=== PATIENT | male | born 1950 | race Caucasian/White ===

== ENCOUNTER 2021-06-13 08:02 | Outpatient (CLI) | payer MEDICARE, SELFPAY ==
--- NOTE | ~2021-06-13 | US_ITS ---
EXAMINATION: US arterial ankle brachial ind DATE: 06/13/2021 08:43 INDICATION: Other disorders circulatory system TECHNIQUE: Segmental pressures and plethysmographic and Doppler waveforms of the brachial and lower e xtremity arteries were obtained. COMPARISON: None. FINDINGS: Right and left brachial artery pressures of 141 mm Hg and 149 mm Hg, respectively, are concordant (no rmal difference <= 30 mmHg). The right ankle-brachial index (YASSINE) is 1.21 (normal >= 0.9-1.0). The right great toe-brachial index (TBI) is 0.88 (normal >= 0.65). Arterial Doppler waveforms are biphasic with brisk systolic upstrokes at both the right posterior tibial and dorsalis pedis arteries. The left YASSINE is 1.17. The left TBI is 0.91. Arterial Doppler waveforms are biphasic with brisk systol ic upstrokes at both the left posterior tibial and dorsalis pedis arteries. IMPRESSION: 1. No significant arterial occlusive disease with normal bilateral ABIs and TBIs Reviewed, dictated and finalized at location B. H MOLDER IMPRESSION: 1. No significant arterial occlusive disease with normal bilateral ABIs and TBI s
== END 2021-06-13 08:03 | disposition home or self-care (01) ==
LOC: ANHIMG 08:06
PROVIDERS: PCP Family Medicine; Visit Provider Family Medicine
DX: I73.9 Peripheral vascular disease, unspecified (principal); I99.8 Other disorder of circulatory system
CPT/HCPCS: 93922

== ENCOUNTER 2021-11-05 07:20 | Outpatient (CLI) | payer MEDICARE, SELFPAY ==
--- NOTE | ~2021-11-05 | CT_ITS ---
EXAMINATION: CTA chest PE protocol DATE: 11/05/2021 08:04 INDICATION: Shortness of breath. Chest pain. TECHNIQUE: Computed tomography angiography (CTA) of the chest was performed with 100 mL Omnipaque-350 intravenous contrast timed to evaluate the pulmonary arteries. Coronal maximum intensity projection 3D-reconstructions were created by the technologist. Automated exposure control and iterative reconst ruction technique were employed. The dose-length product was 304.02 mGy-cm. COMPARISON: None. FINDINGS: The lungs demonstrate mild atelectasis. There are peripheral groundglass opacities and nodu les in the lower lobes. There are a few scattered nodules in the lungs measuring up to 5 mm. There is mild scarring in right upper lobe. No pleural effusion. The heart size is normal. There are coronary artery calcifications. There are changes of coronary artery bypass grafting. Calcified right hilar a nd mediastinal lymph nodes are consistent with old granulomatous disease. There is mild right hilar l ymphadenopathy. There is no pulmonary embolus. Calcifications in the liver and spleen are consistent with old granulomatous disease. There are bridging endplate osteophytes at multiple levels in the spi ne, consistent with diffuse idiopathic skeletal hyperostosis (DISH). There is mild chronic anterior w edging of multiple vertebral bodies. IMPRESSION: 1. No pulmonary embolus. 2. Mild pneumonia predominantly involving the lower lobes. 3. Mild right hilar lymphadenopathy, likely reactive. Reviewed, dictated and finalized at location D.
== END 2021-11-05 07:21 | disposition home or self-care (01) ==
PROVIDERS: PCP Family Medicine; Visit Provider Family Medicine
DX: R79.1 Abnormal coagulation profile (principal); J18.9 Pneumonia, unspecified organism; R79.89 Other specified abnormal findings of blood chemistry; I25.10 Atherosclerotic heart disease of native coronary artery without angina pectoris; R59.0 Localized enlarged lymph nodes; M48.50XA Collapsed vertebra, not elsewhere classified, site unspecified, initial encounter for fracture
CPT/HCPCS: 71275; Q9967

== ENCOUNTER 2022-08-16 14:00 | Emergency (ER) | payer MEDICARE, SELFPAY ==
--- NOTE | ~2022-08-16 | CT_ITS ---
EXAMINATION: CT pelvis wo con DATE: 08/16/2022 16:05 INDICATION: Fall. TECHNIQUE: Computed tomography (CT) of the pelvis was performed without intravenous contrast. Automat ed exposure control and iterative reconstruction technique were employed. The dose-length product was 493.08 mGy-cm. COMPARISON: X-ray left hip with AP pelvis, same date. FINDINGS: Atherosclerotic calcifications. No aneurysm. Bilateral perinephric stranding. Diverticulosi s without diverticulitis. Bladder wall thickening, likely secondary to outlet compromise from prostat omegaly. Uncomplicated appearing bilateral small fat-containing inguinal hernias. Degenerative change s in the spine and bilateral hips. No fracture or dislocation. 6.9 x 6.9 x 5.8 cm soft tissue hematom a within the medial aspect of the left gluteus jennifer muscle. IMPRESSION: 1. No acute osseous finding in the pelvis. 2. 6.9 cm left posterior medial gluteal hematoma. Reviewed, dictated and finalized at location K. OENGRAVER APPRENTICE
--- NOTE | ~2022-08-16 | XR_ITS ---
EXAM: XR hip LT 2V w AP pelvis DATE: 08/16/2022 14:54 HISTORY: fall, left hip pain, buttock lump, unable to sit or lay down . COMPARISON: None available. FINDINGS: Normal mineralization. No fracture or dislocation. No lytic or blastic lesion. Mild lumbar degenerative disc disease. Mild bilateral hip osteoarthritis and scattered pelvic enthesopathy. No e rosion or periosteal change. Scattered vascular calcifications. IMPRESSION: No acute osseous finding in the pelvis or left hip. Reviewed, dictated and finalized at location K. CAL SCIENTIST
[2022-08-16 14:03] VITALS: BP 128/64; PULSE 81; RESP 20; TEMP 36.1; O2SAT 100
[2022-08-16 14:18] VITALS: TEMP 36.6
[2022-08-16 17:07] LABS: Basophils Percent Auto 0.2 % (0.2-1.2); Eosinophils Percent Auto 0.2 % (0-4.4); Hematocrit 37.5 % (42.0-52.0); Hemoglobin 11.9 g/dL (14.0-18.0); Immature Granulocyte Absolute 0.04 K/mm3 (0.00-0.031); Immature Granulocyte Percent A 0.4 % (0-0.5); Lymphocytes Absolute Auto 1.52 K/mm3 (0.9-3.2); Lymphocytes Percent Auto 14.8 % (18.3-44.2); Mean Corpuscular HGB Conc 31.7 g/dl (32-36); Mean Corpuscular Hemoglobin 27.3 pg (26-34); Mean Platelet Volume 11.5 fl (7.4-10.4); Monocytes Absolute Auto 0.9 K/mm3 (0.1-0.6); Monocytes Percent Auto 8.3 % (2.6-8.5); Neutrophils Absolute Auto 7.8 K/mm3 (1.3-6.7); Neutrophils Percent Auto 76.1 % (45.5-73.1); Platelet Count Result 210 k/mm3 (150-375); Red Blood Count 4.36 M/mm3 (4.6-6.20); Red Cell Distribution Width 15.4 % (11.5-14.5); White Blood Count 10.3 K/mm3 (4.5-10.0)
--- NOTE | 2022-08-16 18:27 | ED.FALL ---
HPI - Fall General Chief Complaint: Fall Stated Complaint: fall with left hip pain Time Seen by Provider: 08/16/22 14:19 Source: RN notes reviewed History of Present Illness HPI Narrative: Patient presents for left hip and buttocks pain. Patient states that approximately 1030 this morning he was taking off his pants when he fell and landed on his left buttocks. He states since that time he has had some pain in the buttocks with some swelling area right states she had marked area noted the swelling been getting bigger become concerned and sent him to the ER for further evaluation. Patient denies striking his head or loss of consciousness he denies any numbness or tingling in the extremities denies any abdominal pain states he is not on any blood thinners Related Data Allergies Allergy/AdvReac Type Severity Reaction Status Date / Time No Known Allergies Allergy Verified 08/16/22 14:01 Review of Systems Review of Systems: Gen.: Denies fevers or chills ENT: Denies congestion Respiratory: Denies shortness of breath or cough CV: Denies chest pain or palpitations GI: Denies abdominal pain nausea, emesis denies incontinence Musculoskeletal: See HPI Neuro: Denies numbness, tingling, weakness or focal weakness Skin: Denies rash Except as documented, all other systems reviewed and negative [facility] Past Medical History Medical History (Updated 08/16/22 @ 18:35 by Philip Ocampo DO) Hypertension Social History Social History (Updated 08/16/22 @ 18:29 by Philip Ocampo DO) Smoking status: Never smoker Exam Narrative: APPEARANCE: No acute distress, nontoxic, resting in bed EYES: EOMI HEENT: Normocephalic, atraumatic, OMM RESPIRATORY: No respiratory distress Clear to auscultation bilaterally with no rhonchi wheezing or rales. CARDIOVASCULAR: Regular rate and rhythm without murmurs rubs or gallops. ABDOMINAL: Soft, nontender, nondistended, no rebound or guarding Back: No midline thoracic or lumbar tenderness to palpation MUSCULOSKELETAl: Moves all extremities. No clubbing, cyanosis or edema. The left buttocks has an area of subcutaneous swelling and firmness there is no overlying erythema or open wound there is no overlying ecchymosis seen at this time there is tenderness palpation in this region there is no tenderness over the lateral or anterior hip no tenderness of the left knee or ankle left lower extremity neurovascular intact able to stand on the left leg with no pain NEURO: Awake and alert. Following commands, speech normal, no focal deficits SKIN:: Warm, dry. No rashes lesions or abrasions PSYCHIATRIC: Normal affect/mood, Course Course Emergency Course: : Discussed with Dr. Smith presentation work-up. Discussed patient's hemoglobin and current hematoma the patient is hemodynamically stable feels patient may be discharged follow-up as an outpatient Discussed with patient results of workup and diagnosis. Discussed need for follow-up with primary care, proper use of medication, and reasons to return to the emergency department. Patient understands and agrees to current treatment plan Vital Signs Vital signs: Vital Signs Temperature 96.9 F L 08/16/22 14:03 Pulse Rate 81 08/16/22 14:03 Respiratory Rate 20 08/16/22 14:03 Blood Pressure 128/64 08/16/22 14:03 Pulse Oximetry 100 08/16/22 14:03 Oxygen Delivery Room Air 08/16/22 14:03 Temperature 97.9 F 08/16/22 14:18 Pulse Rate 81 08/16/22 14:03 Respiratory Rate 20 08/16/22 14:03 Blood Pressure 128/64 08/16/22 14:03 Pulse Oximetry 100 08/16/22 14:03 Oxygen Delivery Room Air 08/16/22 14:03 MDM - Fall MDM Narrative Medical decision making narrative: Patient presents with a fall with left buttocks hematoma. CT scan and x-ray shows no signs of fracture. Patient's hematoma was monitored throughout stay in ED and did have some mild increase in size but no large exaggeration of size the patient is feeling better is able t
[2022-08-16 18:47] VITALS: BP 138/75; PULSE 84; RESP 17; TEMP 36.6; O2SAT 97
== END 2022-08-16 18:48 | disposition home or self-care (01) ==
PROVIDERS: Emergency Provider Emergency Medicine; PCP Family Medicine
DX: S30.0XXA Contusion of lower back and pelvis, initial encounter (principal); I10 Essential (primary) hypertension; W18.39XA Other fall on same level, initial encounter
CPT/HCPCS: 36415; 72192; 73502; 85025; 99284

== ENCOUNTER → 2022-09-02 15:13 | Outpatient (CLI) | payer MEDICARE, SELFPAY ==
--- NOTE | ~2022-09-02 | MR_ITS ---
EXAMINATION: MR pelvis wo con DATE: 09/02/2022 16:37 INDICATION: Arthralgia of left side of pelvis. TECHNIQUE: Magnetic resonance imaging (MRI) of the pelvis was performed without intravenous contrast. COMPARISON: CT pelvis 08/16/2022 FINDINGS: Bone alignment is normal. No fracture. There is moderate osteoarthritis of the hips. There is a small right hip joint effusion. There is mild osteoarthritis of the sacroiliac joints. There is mild lumba r spondylosis. There is diverticulosis of the colon without evidence of diverticulitis. The prostate is moderately enlarged. There is a 7.0 x 5.3 cm hematoma in the left gluteus maximum muscle with incr eased T2-weighted signal intensity in the adjacent muscle fibers. The hamstring origins are normal. T he gluteus minimus and gluteus medius tendons are normal. There is mild bilateral trochanteric bursit is. IMPRESSION: 1. Partial tear of left gluteus jennifer muscle with hematoma (grade 2 strain). 2. Moderate osteoarthritis of the hips. Reviewed, dictated and finalized at location A. CEMENT AND PAINT MAKER
== END ==
PROVIDERS: PCP Family Medicine; Visit Provider Family Medicine
DX: M25.552 Pain in left hip (principal); M16.0 Bilateral primary osteoarthritis of hip; S30.0XXA Contusion of lower back and pelvis, initial encounter; T14.90XA Injury, unspecified, initial encounter
CPT/HCPCS: 72195

== ENCOUNTER 2024-02-03 13:12 | Outpatient (CLI) | payer MEDICARE, SELFPAY ==
--- NOTE | ~2024-02-03 | MR_ITS ---
EXAMINATION: MR pelvis wo con DATE: 02/03/2024 14:13 INDICATION: Sacroiliitis. Lumbar spine stenosis. Left hip pain. Low back pain. TECHNIQUE: Magnetic resonance imaging (MRI) of the pelvis was performed without intravenous contrast. COMPARISON: Pelvis MRI 09/02/2022, CT pelvis 08/16/2022 FINDINGS: Bone alignment is normal. No fracture. There is moderate osteoarthritis of the hips. There is mild os teoarthritis of the sacroiliac joints. There is mild lumbar spondylosis. The prostate is mildly enlar ged. The hamstring origins are normal. The iliopsoas tendons are normal. There is mild bilateral glut eus minimus tendinopathy. The gluteus medius tendons are normal. There is mild bilateral trochanteric bursitis. IMPRESSION: 1. Moderate osteoarthritis of the hips. 2. Mild osteoarthritis of the sacroiliac joints. No evidence of inflammatory arthropathy. Reviewed, dictated and finalized at location A. IMPRESSION: 1. Moderate osteoarthritis of the hips. 2. Mild osteoarthritis of the sacroiliac joints. No evidence of inflammatory ar thropathy.
--- NOTE | ~2024-02-03 | MR_ITS ---
EXAMINATION: MR lumbar spine wo con DATE: 02/03/2024 14:01 INDICATION: Low back pain. Left hip pain. Lumbar spine stenosis. TECHNIQUE: Magnetic resonance imaging (MRI) of the lumbar spine was performed without intravenous con trast. Sequences included sagittal T2-weighted FSE, sagittal T2-weighted FS FSE, sagittal T1-weighted FSE, and axial T2-weighted FSE. COMPARISON: None FINDINGS: Bone alignment is normal. Vertebral body heights are normal. There is mildly decreased disc height at L4-L5 and moderately decreased disc height at L5-S1. The distal spinal cord signal intensi ty is normal. The conus medullaris is at L2. There is clumping and peripheral displacement of the cau da equina from L4 to S1, consistent with arachnoiditis. The following disc levels are specifically di scussed: L1-L2: The disc does not extend beyond the endplate margin. There is mild bilateral facet joint osteo arthritis. There is no neural foraminal stenosis. There is no central canal stenosis. L2-L3: The disc does not extend beyond the endplate margin. There is moderate bilateral facet joint o steoarthritis. There is no neural foraminal stenosis. There is no central canal stenosis. L3-L4: The disc is bulging. There is mild bilateral facet joint osteoarthritis. There is mild bilater al neural foraminal stenosis. There is no central canal stenosis. L4-L5: The disc is bulging and has an annular fissure. There is mild right and moderate left facet kimo int osteoarthritis. There is mild bilateral neural foraminal stenosis. There is mild central canal st enosis. L5-S1: The disc is bulging. There is severe bilateral facet joint osteoarthritis. There is mild bilat eral neural foraminal stenosis. There is mild central canal stenosis. IMPRESSION: 1. Moderate lower lumbar spondylosis. 2. Arachnoiditis. Reviewed, dictated and finalized at location A.
== END 2024-02-03 13:13 ==
LOC: MICIMG 13:13
PROVIDERS: PCP Family Medicine; Visit Provider Family Medicine
DX: M46.1 Sacroiliitis, not elsewhere classified (principal); M16.0 Bilateral primary osteoarthritis of hip; M43.06 Spondylolysis, lumbar region; G03.9 Meningitis, unspecified; R21 Rash and other nonspecific skin eruption; M48.061 Spinal stenosis, lumbar region without neurogenic claudication; R26.9 Unspecified abnormalities of gait and mobility; R39.15 Urgency of urination; R15.9 Full incontinence of feces
CPT/HCPCS: 72148; 72195

== ENCOUNTER 2024-05-03 08:45 | Outpatient (CLI) | payer MEDICARE, SELFPAY ==
--- NOTE | ~2024-05-03 | MR_ITS ---
EXAMINATION: MR knee RT wo con DATE: 05/03/2024 09:34 INDICATION: Right knee pain TECHNIQUE: Magnetic resonance imaging (MRI) of the right knee was performed without intravenous contr ast. Sequences included coronal PD-weighted FSE, coronal PD-weighted FS FSE, sagittal T2-weighted FS E, sagittal PD-weighted FS FSE and axial PD weighted fat saturated FSE. COMPARISON: None. FINDINGS: Medial compartment: Medial meniscus is normal. There is deep chondral fissuring involving greater than 50% the cartilage thickness but without degenerative subchondral changes along the anterior to central weightbearing me dial femoral condyle. Additional shallow chondral fissuring involving less than 50% the cartilage thi ckness at the central to anterior aspect of the medial tibial plateau. There are small intraosseous g anglion cysts along the anteromedial and posterior medial aspect of the medial tibial plateau. Lateral compartment: Lateral meniscus is normal. Partial-thickness chondral fissuring along the anterior weightbearing lat eral femoral condyle and at the central aspect of the lateral tibial plateau each with small regions appearing to involve greater than 50% the cartilage thickness but without degenerative subchondral ch anges. There is an additional small intraosseous ganglion cyst at the posterior medial aspect of the lateral tibial plateau. Patellofemoral compartment: Deep chondral ulceration involving greater than 50% the cartilage thickness at the patellar apical ri dge, medial and lateral patellar facets, the latter with small regions of underlying mild subarticula r edema-like signal change. Similar deep chondral ulceration with small focus of mild subarticular ed luis-like signal change at the lateral trochlea, with small central subchondral osteophytes at the tro chlear groove-like change at the inferior aspect of the medial trochlea. Ligaments and tendons: Posterior cruciate ligament is normal. Prominent increased intrasubstance signal in the anterior cruc iate ligament which maintains a normal angle relative to Blumensaat line consistent with mucoid degen eration without definitive tear. The medial collateral ligament and fibular collateral ligament compl ex are normal. Moderate size enthesophyte at the patellar insertion of the normal quadriceps tendon. Patellar tendon is normal. The visualized medial and lateral hamstring tendons as well as the iliotib ial band are normal. Fluid: Very small right knee joint effusion at the suprapatellar pouch. Small ganglion cyst at the and reces s posterior superior to the intercondylar notch. No loose osteochondral bodies identified. Osseous/other: Bone alignment is normal. No fracture or pathologic marrow replacing process. IMPRESSION: 1. Tricompartmental osteoarthritis, moderate severity with extensive high-grade chondromalacia at the patellofemoral compartment and mild with regions of moderate grade chondromalacia at the medial and lateral compartments. 2. Likely mucoid degeneration of the anterior cruciate ligament without definitive tear. Correlate [facility] physical exams to assess for degree of functional integrity. Reviewed, dictated and finalized at location A. IMPRESSION: 1. Tricompartmental osteoarthritis, moderate severity with extensive high-grade chondromalacia at the patellofemoral compartment and mild with regions of mode rate grade chondromalacia at the medial and lateral compartments. 2. Likely mucoid degeneration of the anterior cruciate ligament without definit jennifer tear. Correlate with physical exams to assess for degree of functional inte grity.
== END 2024-05-03 08:46 | disposition home or self-care (01) ==
LOC: GOSHIMG 08:46
PROVIDERS: PCP Family Medicine; Visit Provider Family Medicine
DX: M17.11 Unilateral primary osteoarthritis, right knee (principal); M22.41 Chondromalacia patellae, right knee
CPT/HCPCS: 73721

== ENCOUNTER 2024-06-09 14:09 | Outpatient (CLI) | payer MEDICARE, SELFPAY ==
--- NOTE | ~2024-06-09 | CT_ITS ---
CT of the Abdomen and Pelvis: Indication: Ventral hernia Technique: 2.5 mm axial scans were obtained through the abdomen and pelvis following intravenous adm inistration of 100 cc of Omnipaque 350. Dose reduction technique was used on this scan by utilizing a utomated exposure control and iterative reconstruction technique. The dose-length product (DLP) was 5 64.65 mGy-cm. COMPARISON: 08/16/2022 Findings: Scans through the lung bases are unremarkable. The liver, spleen, gallbladder, adrenals and kidneys are within normal limits. Pancreas is diffusely atrophic with a 14 mm cystic lesion at the pancreatic neck (axial image 55). There are atheroscleroti c calcifications of the aorta. No lymphadenopathy. No bowel obstruction or bowel wall thickening. There is no evidence to suggest acute appendicitis. Images through the pelvis were performed. Urinary bladder unremarkable. Prostate gland markedly enlar ged. No ascites. Impression: No hernia evident. 14 mm cystic lesion of the pancreas. This is most likely a low malignant potential lesion. Consider f ollow-up MR as indicated. Reviewed, dictated and finalized at location . UNICATION CENTER OPERATOR Impression: No hernia evident. 14 mm cystic lesion of the pancreas. This is most likely a low malignant potent ial lesion. Consider follow-up MR as indicated.
[2024-06-09 14:42] LABS: Estimated Glomerular Filt Rate 39
== END 2024-06-09 14:10 | disposition home or self-care (01) ==
PROVIDERS: PCP Family Medicine; Visit Provider Family Medicine
DX: K86.2 Cyst of pancreas (principal); K43.9 Ventral hernia without obstruction or gangrene
CPT/HCPCS: 74177; Q9967

== ENCOUNTER 2024-06-11 08:42 | Outpatient (CLI) | payer MEDICARE, SELFPAY ==
--- NOTE | ~2024-06-11 | MR_ITS ---
EXAMINATION: MR abdomen wo/w con DATE: 06/11/2024 11:03 INDICATION: Pancreatic lesion. TECHNIQUE: Magnetic resonance imaging (MRI) of the abdomen was performed without and with 16 mL Multi Erik intravenous contrast. COMPARISON: CT abdomen and pelvis 06/09/2024, chest CT 11/05/21, CT abdomen 10/01/06 FINDINGS: The liver, gallbladder, spleen, and adrenal glands are normal. There are cysts in the kidneys measuri ng up to 3.2 cm on the right. The pancreas is atrophic. There are approximately 6 cystic lesions in t he pancreas measuring up to 14 mm. The pancreatic duct is normal in caliber. There are no dilated loo ps of bowel. There are no pathologically enlarged lymph nodes. There is no free intraperitoneal fluid . There is a right-sided ventral hernia containing fat. IMPRESSION: 1. Low risk cystic lesions of the pancreas measuring up to 14 mm. The differential diagnosis includes pseudocyst, intraductal papillary mucinous neoplasm (IPMN), mucinous cystic neoplasm (MCN), serous c ystadenoma, and neuroendocrine tumor. Consider abdomen MRI without and with contrast in 2 years. 2. Right-sided ventral hernia containing fat. Reviewed, dictated and finalized at location A. OR ARCHITECT IMPRESSION: 1. Low risk cystic lesions of the pancreas measuring up to 14 mm. The different ial diagnosis includes pseudocyst, intraductal papillary mucinous neoplasm (IPM N), mucinous cystic neoplasm (MCN), serous cystadenoma, and neuroendocrine tumo r. Consider abdomen MRI without and with contrast in 2 years. 2. Right-sided ventral hernia containing fat.
== END 2024-06-11 08:43 | disposition home or self-care (01) ==
PROVIDERS: PCP Family Medicine; Visit Provider Family Medicine
DX: K86.9 Disease of pancreas, unspecified (principal)
CPT/HCPCS: 74183; A9577

== ENCOUNTER 2025-05-06 11:52 | Outpatient (CLI) | payer MEDICARE, SELFPAY ==
--- OUTSIDE RECORDS SUMMARY | 2024-05-19 07:40 | XMS_ITS ---
Author Organization [facility] Address [address] [place] [address] Care Team Providers Care Card Reader Name Role Phone Cynthia Casas Primary Care Provider Unavailyeni Schrader Jr, MD, Zane Unavailable [phone] ALLERGIES No Known Allergies REASON FOR VISIT Bilateral right greater than left knee pain MEDICATIONS Medication SIG (Take, Route, Frequency, Duration) Notes Start Date End Date Status Pantoprazole Sodium 1 tablet / o nce a day; Prescribed By: Cynthia Casas MD Active Tamsulosin HCl 0.4 MG ! capsule /every evening 05/16/2024 Active Atorvastatin Calcium 40 MG 1 tablet / bedtime 05/16/2024 Active Aspirin 1 tablet / bedtime; Prescribed By: Cynthia Casas MD Active Tylenol Extra Strength 500 MG 3 tablets / bedtime 05/16/2024 Activ e Glimepiride 4 MG 1 tablet/ 2 times a day 05/16/2024 Active metFORMIN HCl 500 MG 2 tablets / 2 times a day 05/16/2024 Active Entresto 24-26 MG 1 tablet / 2 times a day 05/16/2024 Active Carvedilol 12.5 MG 1 tablet/ 2 times a day 05/16/2024 Active Jardiance 10 MG 1 tablet / once a day 05/16/2024 Active Melatonin 5 MG 1 tablet / bedtime 05/16/2024 Active Ibuprofen 200 MG 4 tablets / every 8 hours prn 05/16/2024 Active SOCIAL HISTORY Tobacco Use: Social History Observation Description Date Details (start date - stop date) Former Smoker 07/06/1965 - 07/06/1973 Sex Assigned At : Social History Observation Description Sex Assigned At Unknown Tobacco Use: Question Answer Notes Patient is a: former smoker When did you start smoking? 07/06/1965 When did you stop smoking? 07/06/1973 Alcohol screening: Question Answer Notes Did you have a drink containing alcohol in the p ast year? No Points 0 Interpretation Negative PROBLEMS Problem Type ICD Code Onset Dates Problem Status W/U Status Risk SNOMED Code Notes Problem Bilateral primary osteoarthritis of knee (M17.0) Active confirmed 419405958 Problem Chondrocalcinosis of right knee (M11.261) Active confirmed [id number] Problem Chondrocalcinosis of left knee (M11.262) Active confirmed [id number] VITAL SIGNS Height 70 in 05/19/2024 Weight 175 lbs 05/19/2024 BMI 25.11 kg/m2 05/19/2024 Encounters Encounter Location Date Provider Diagnosis [facility] [address] [place] [address] 05/19/2024 Zane Schrader Jr, MD Bilateral primary osteoarthritis of knee M17.0 ; Chondrocalcinosis of right knee M11.261 and Chondrocalcinosis of left knee M11.262 ASSESSMENTS Encounter Date Diagnosis Assessment Notes Treatment Notes Treatment Clinical Notes 05/19/2024 Bilateral primary osteoarthritis of knee (ICD-10 - M17.0) 05/19/2024 Chondrocalcinosis of right knee (ICD-10 - M11.261) 05/19/2024 Chondrocalcinosis of left knee (ICD-10 - M11.262) PLAN OF TREATMENT No Information History and Physical Notes * HPI (History of Present Illness) Category Sub-Category Detail Notes Depression Screening PHQ-2 (2015 Edition) Little interest or pleasure in doing things?: Nearly every day Feeling down, depressed, or hopeless?: S everal days Total Score: 4
--- NOTE | ~2025-05-06 | XR_ITS ---
EXAMINATION: XR knee RT 3V, 05/06/2025 12:15 CDT HISTORY: Right knee pain Unspecified chronicity COMPARISON: No comparisons available. Findings: No acute fracture or malalignment. Severe tricompartmental degenerative changes with chondrocalcinosis and small effusion Soft tissues unremarkable. Impression: No acute fracture or malalignment. Reviewed, dictated and finalized at location P. ARCHITECT Impression: No acute fracture or malalignment.
--- OUTSIDE RECORDS SUMMARY | 2025-05-06 11:56 | XMS_ITS | Clinical Summary ---
Author Organization [facility] Address [address] [place] [address] Care Team Providers Care Ticker Maintainer Name Role Phone Cynthia Casas MD Primary Care Provider Grecia Bal ANP-BC Unavailable [phone] Allergies No known active allergies Medications aspirin (CALI LOW DOSE) 81 MG Tab EC Take 1 tablet by mouth daily. 5 Active finasteride 5 MG tablet finasteride tablet 5 mg; take 1 tablet by mouth every evening; 0; -Sep-2014; Active 5 Active tamsulosin (FLOMAX) 0.4 MG Cap Take 1 tablet by mouth every evening. 5 Active metFORMIN (GLUCOPHAGE XR) 500 MG 24 hr tablet Take 2 tablets by mouth 2 (two) times daily. 6 Active ibuprofen 800 MG tablet Take 1 tablet by mouth every 8 (eight) hours as needed. 5 Active Magnesium 500 MG Cap Take 1 tablet by mouth 2 (two) times daily. 6 Active pantoprazole (PROTONIX) 40 MG tablet Take 1 tablet by mouth daily. 5 Active Acetaminophen (TYLENOL EXTRA STRENGTH OR) Take 1-2 tablets by mouth 3 (three) times daily as needed. 5 Active Cholecalciferol (VITAMIN D3) 2000 UNITS Cap Take 1 capsule by mouth daily. 5 Active ALPRAZolam (XANAX) 0.25 MG tablet Take 1 tablet by mouth nightly as needed. 6 Active atorvastatin 40 MG tablet Take 40 mg by mouth daily. Active carvedilol 12.5 MG tablet Take 12.5 mg by mouth 2 (two) times daily with meals. Active hydrocodone-jann taminophen 7.5-325 MG tablet Take 1 tablet by mouth every 6 (six) hours as needed for Pain. Active losartan 25 MG tablet Take 12.5 mg by mouth daily. Active glimepiride 4 MG tablet Take 4 mg by mouth 2 (two) times daily. Active cyclobenzaprine 10 MG tablet Take 10 mg by mouth daily as needed for Muscle Spasms. Active zolpidem 10 MG tablet Take 10 mg by mouth nightly as needed for Sleep. Active duloxetine 30 MG capsule Take 30 mg by mouth daily. Active metroNIDAZOLE (FLAGYL) 500 MG tablet Take 500 mg by mouth 2 (two) times daily. 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[place]ving [place] coronary artery of [place] heart without angina pectoris 01/14/2016 SVT (supraventricular tachycardia) 01/14/2016 Mixed hyperlipidemia 01/14/2016 Essential hypertension 01/14/2016 Type 2 diabetes mellitus without complication Family History Medical History Relation Comments NE Brother NE Father Relation Status Comments Brother History: NE age 67 Father (Age 62) Mother (Age 77) bone cancer Social History Tobacco Use Types Packs/Day Years Used Date Smoking Tobacco: Former Cigarettes Q uit: 1974 Smokeless Tobacco: Never Alcohol Use Standard Drinks/Week Comments No 0 (1 standard drink = 0.6 oz pur e alcohol) Sex and Gender Information Value Date Recorded Sex Assigned at Male 08/22/2024 3:31 PM BIOLOGY TEACHER Legal Sex Male 11:08 PM CDT Gender Identity Not on file Sexual Orientation Not on file Occupation Industry Job Start Date Job End Date 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 file Not on file Not on file Last Filed Vital Signs Vital Sign Reading Time Taken Comments Blood Pressure 138/80 09/04/2017 10:59 AM BIOLOGY TEACHER Pulse 88 09/04/2017 10:59 AM BIOLOGY TEACHER Temperature - - Respiratory Rate 16 09/04/2017 10:59 AM BIOLOGY TEACHER Oxygen Saturation - - Inhaled Oxygen Concentration - - Weight 85.3 kg (188 lb) 09/04/2017 10:59 AM BIOLOGY TEACHER Height 177.8 cm (5' 10) 09/04/2017 10:59 AM BIOLOGY TEACHER Body Mass Index 26.98 09/04/2017 10:59 AM BIOLOGY TEACHER Plan of Treatment Health Maintenance Due Date Last Done Comments ASCVD Statin 1950 Kidney Health Evaluation 1950 Diabetes: Retinopathy Eye Exam 01/26/1966 Hepatitis C 01/26/1966 DTaP, Tdap and Td Vaccines (1 - Tdap) 02/21/2006 02/20/2006 Annual Medicare Wellness Visit 01/26/2013 Zoster Vaccines (2 of 3) 11/17/2013 09/22/2013 [facility] LDL 07/23/2016 07/23/2015, 0 02/2015, 05/03/2014, Additional history exists Lipid Panel 07/23/2016 07/23/2015, 0 02/2015, 05/03/2014, Additional history exists Pneumococcal Vaccine: 50+ Years (2 of 2 - PPSV23, PCV20, or PCV21) 02/26/2017 01/01/2017 Hemoglobin A1C 02/18/2018 08/21/2017, 07/06, 11/10/2014, Additional history exists RSV Immunization or 60+ Years (1 - 1-dose 75+ series) 01/26/2023 COVID-19 Vaccine ( season) 2025 10/16/2021, 05/10/2021, 09/01/2020, Additional history exists Influenza Adult (#1) 2025 05/17/2021, 05/04/2019, 04/26/2018, Additional history exists Hepatitis A Vaccines Aged Out No long er eligible based on patient's age to complete this topic Meningococcal B Vaccine Aged Out No l onger eligible based on patient's age to complete this topic Meningococcal Vaccine Aged Out No elvia fadia eligible based on patient's age to complete this topic RSV Immunizations Under 20 Months Aged Out No longer eligible based on patient's age to complete this topic Procedures Procedure Name Priority Date/Time Associated Diagnosis Comments HEMOGLOBIN, GLYCOSYLATED Routine 08/21/2017 10:19 PM BIOLOGY TEACHER LIPID PANEL Routine 07/23/2015 11:02 AM BIOLOGY TEACHER from Last 3 Months or Most Recently Relevant to Health Maintenance Results * (ABNORMAL) HEMOGLOBIN, GLYCOSYLATED (08/21/2017 10:19 PM BIOLOGY TEACHER) HGB A1C 7.4(H) 4.5 - 6.0 % 08/22/2017 12:31 AM BIOLOGY TEACHER [facility] ESTIMATED AVG GLUCOSE 166 MG/DL 08/22/2017 12:31 AM BIOLOGY TEACHER [facility] 08/21/2017 10:1 9 PM BIOLOGY TEACHER 08/21/2017 11:20 PM BIOLOGY TEACHER Generic Conversion Md [facility] Final R esult [facility] [address] [place] [address], [id number] * (ABNORMAL) LIPID PANEL (07/23/2015 11:02 AM BIOLOGY TEACHER) CHOLESTEROL 99(L) 120 - 200 mg/dL [facility] TO EPIC CONVERSION TRIGLYCERIDES 142 20 - 200 mg/dL [facility] TO [facility]IC CONVERSION HDL 23 0 - 55 mg/dL [facility] TO [facility]IC CONVERSION LDL (CALCULATED) 48 10 - 130 mg/dL [facility] TO EPIC CONVERSION RISK 4 [facility] T O EPIC CONVERSION 07/23/2015 11:0 2 AM BIOLOGY TEACHER 07/23/2015 11:02 AM BIOLOGY TEACHER Narrative [facility] TO EPIC CONVERSION - 07/23/2015 12:00 PM BIOLOGY TEACHER This lab was migrated from [facility] and may be missing annotations or result text, please check the Media tab for the most complete results. Cynthia Casas MD LABORATORY Final Result [facility] TO EPIC CONVERSION from Last 3 Months or Most Recently Relevant to Health Maintenance Insurance [facility] MEDICARE [facility] MEDICARE [facility] Care Teams Ticker Maintainer Relationship Specialty Start Date End Date Cynthia Casas MD [address] [place] [address] PCP - General FAMILY PRACTICE 01/09/16 Grecia Bal, ANP- [address] [facility] [address] [place] [id number] CARDIOVASCULAR DISEASE 09/04/17
--- OUTSIDE RECORDS SUMMARY | 2025-05-06 11:56 | XMS_ITS | Patient Health Record ---
Author Organization [facility] dicine Address [address] [place] [address] Care Team Providers Care Analytics Senior Manager Name Role Phone Dr. Cynthia Casas Primary Care Provider [phone] Lora Meyer Unavailable [phone] Migration, Provider Unavailable Unavailable Allergies No Known Allergies Results Component Value Reference Range Flag Notes Urine Culture Reviewed date:09/23/2024 12:27:49 PM Interpretation: Performing Lab: Notes/Report: Test Performed by: [place] [address] Yeast Cake Cutter: DO Neeraj Lr Urine See Below Final No growth at 2 days. Urinalysis with Microscopic Reviewed date:09/23/2024 12:27:49 PM Interpretation: Performing Lab: Notes/Report: Test Performed by: [place] [address] Yeast Cake Cutter: Philip Manley DO UA All Small Particles 1177 UA Color Light Yellow UA Appear Clear Clear UA pH 6.0 5.0-8.0 UA Spec Grav 1.017 1.005-1.034 UA Glucose Normal Normal UA Ketones Negative Negative UA Blood Negative Negative UA Protein Trace Negative A UA Urobilinogen Normal Normal UA Bili Negative Negative UA Nitrite Negative Negative UA Leuk Est Negative Negative UA WBC 1 <=5 /HPF UA RBC 1 0-3 /HPF UA Bacteria Negative Negative /HPF UA Mucous Negative Negative /LPF CBC w/ Diff Reviewed date:06/06/2024 12:00:00 AM Interpretation: Performing Lab: Notes/Report: Baso Absolute 0.1 x10*3/mcL Basophil Auto 0.9 % Eos Absolute 0.8 x10*3/mcL Eosinophil Auto 14.4 % Hct 47.6 % Hgb 15.9 g/dL Lymph Absolute 1.6 x10*3/mcL Lymph Auto 28.2 % MCH 30.7 pg MCHC 33.3 g/dL MCV 92.0 fL Yuba Absolute 0.4 x10*3/mcL [place] Auto 8.0 % MPV 10.3 fL Neutro Absolute 2.7 x10*3/mcL Neutro Auto 48.5 % Platelets 211 K/mcL RBC 5.17 x10*6/mcL RDW 16.3 % WBC 5.6 K/mcL Comprehensive Metabolic Pane l Reviewed date:06/06/2024 12:00:00 AM Interpretation: Performing Lab: Notes/Report: Albumin Lvl 4.5 g/dL Albumin/Globulin Ratio 1.7 Alk Phos 94 unit/L ALT 14 unit/L ANION GAP 6.2 mmol/L AST 18 unit/L Bilirubin Total 0.6 mg/dL BUN 21 mg/dL Calcium Lvl 9.7 mg/dL Chloride Lvl 102 mmol/L CO2 30 mmol/L Creatinine Lvl 1.54 mg/dL eGFR CKD-EPI 46 mL/min/1.73 m2 Glucose Lvl 147 mg/dL Potassium Lvl 4.3 mmol/L Protein Total 7.1 g/dL Sodium Lvl 138 mmol/L Erythrocyte Sedimentation Ra te Reviewed date:06/06/2024 12:00:00 AM Interpretation: Performing Lab: Notes/Report: ESR, Westergren 3 mm/hr Folate Level Reviewed date:06/06/2024 12:00:00 AM Interpretation: Performing Lab: Notes/Report: Folate Lvl 16.2 ng/mL Hemoglobin A1c {Glycosylated } Reviewed date:06/06/2024 12:00:00 AM Interpretation: Performing Lab: Notes/Report: eAvg Glucose 183 mg/dL Hemoglobin A1c 8.0 % INACTIVE Morphology Reviewed date:06/06/2024 12:00:00 AM Interpretation: Performing Lab: Notes/Report: Anisocyte 1+ Lactate Dehydrogenase Reviewed date:06/06/2024 12:00:00 AM Interpretation: Performing Lab: Notes/Report: LDH 120 unit/L Lipid Panel {Chol, Trig, HDL , LDL} Reviewed date:06/06/2024 12:00:00 AM Interpretation: Performing Lab: Notes/Report: Chol/HDL 4 Cholesterol Total 108 mg/dL Coronary Risk 29 % HDL 31 mg/dL LDL 44 mg/dL NON HDL CHOLESTEROL 78 mg/dL Triglycerides 167 mg/dL Magnesium Reviewed date:06/06/2024 12:00:00 AM Interpretation: Performing Lab: Notes/Report: Magnesium Lvl 1.9 mg/dL Microalbumin Quantitative wi th Creatinine Reviewed date:06/06/2024 12:00:00 AM Interpretation: Performing Lab: Notes/Report: Creatinine Ur 166 mg/dL Mcralb/Creat Ratio 36.3 mcg/mg Microalbumin Ur 60.4 mg/L Miscellaneous Lab Test 2 Reviewed date:06/01/2024 12:00:00 AM Interpretation: Performing Lab: Notes/Report: Misc Lab: Result Misc Reordered PSA Annual Screening Reviewed date:06/06/2024 12:00:00 AM Interpretation: Performing Lab: Notes/Report: PSA Total 5.42 ng/mL PTHI No Calcium Reviewed date:06/06/2024 12:00:00 AM Interpretation: Performing Lab: Notes/Report: Parathyroid Hormone, Intact 30.4 pg/mL T4 Free Reviewed date:06/06/2024 12:00:00 AM Interpretation: Performing Lab: Notes/Report: T4 Free 0.80 ng/dL Testosterone Total Reviewed date:06/06/2024 12:00:00 AM Interpretation: Performing Lab: Notes/Report: TESTOSTERONE TOTAL 394.8 ng/dL Thyroid Peroxidase {TPO) Ab- ARUP Reviewed date:06/06/2024 12:00:00 AM Interpretation: Performing Lab: Notes/Report: TPO (Thyroid Peroxidase) See Below Thyroid Stimulating Hormone Reviewed date:06/06/2024 12:00:00 AM Interpretation: Performing Lab: Notes/Report: TSH 1.38 mcIU/mL Vit B3 Niacin and Metabolite s Reviewed date:06/06/2024 12:00:00 AM Interpretation: Performing Lab: Notes/Report: Misc Lab: Result Misc Reordered Vitamin B1 {Thiamine), Whole Blood-ARUP Reviewed date:06/06/2024 12:00:00 AM Interpretation: Performing Lab: Notes/Report: Vit B1 WB See Below Vitamin B12 Reviewed date:06/06/2024 12:00:00 AM Interpretation: Performing Lab: Notes/Report: Vitamin B12 Lvl 701 pg/mL Vitamin B2 Reviewed date:06/06/2024 12:00:00 AM Interpretation: Performing Lab: Notes/Report: Vitamin B2 See Below Vitamin B6 {Pyridoxal 5-Phos phate)-ARUP Reviewed date:06/06/2024 12:00:00 AM Interpretation: Performing Lab: Notes/Report: Vit B6 See Below Vitamin D 25 Hydroxy Reviewed date:06/06/2024 12:00:00 AM Interpretation: Performing Lab: Notes/Report: Vitamin D 25 OH 46 ng/mL Urine Culture Reviewed date:02/02/2025 08:27:53 AM Interpretation: Performing Lab: Notes/Report: Test Performed by: [place] [address] Yeast Cake Cutter: Philip Manley DO Report Forwarded By: [address] [place] [id number] C Urine See Below Final No growth at 2 days. Urinalysis with Microscopic Reviewed date:02/02/2025 08:43:36 AM Interpretation: Performing Lab: Notes/Report: Test Performed by: [place] [address] Yeast Cake Cutter: Philip Manley DO Report Forwarded By: [address] [place], [place] [id number] UA All Small Particles 3241 UA Color Dark Yellow A UA Appear Cloudy Clear A UA pH 6.5 5.0-8.0 UA Spec Grav 1.030 1.005-1.034 UA Glucose >1000 Normal A Patient has History of Diabetes. UA Ketones Negative Negative UA Blood 1+ Negative A UA Protein Trace Negative A UA Urobilinogen 2 Normal A UA Bili 1+ Negative A UA Nitrite Positive Negative A UA Leuk Est 4+ Negative A UA WBC >100 <=5 /HPF H UA RBC 16 0-3 /HPF H UA Bacteria Trace Negative /HPF A UA Mucous Trace Negative /LPF A UA WBC Clumps Moderate Negative A Urine Culture Reviewed date:02/02/2025 08:43:36 AM Interpretation: Performing Lab: Notes/Report: Test Performed by: [place] [id number] Yeast Cake Cutter: Philip Manley DO Report Forwarded By: [id number] [address] [place] [address] C Urine See Below Final 20,000 cfu/ml Mixed Ny (multiple species present) No sensitivity performed. Echocardiogram Reviewed date:08/23/2024 01:32:21 PM Interpretation:EF 40-45% Performing Lab: Notes/Report: EF 40-45% Hemoglobin A1c {Glycosylated } Reviewed date:01/05/2025 09:30:03 AM Interpretation: Performing Lab: Notes/Report: Test Performed by: [place] [id number] Yeast Cake Cutter: Philip Manley DO Hemoglobin A1c 7.5 <=6.4 % H Hemoglobin A1C < 5.7% = Normal 5.7-6.4% = Increased risk for future diabetes >=6.5% = Diabetes eAvg Glucose 169 <=117 mg/dL H eAG Reference Range <117 mg/dL = Normal 117-137 mg/dL = Increased Risk For Future Diabetes >137 mg/dL = Diabetes Pathology Tissue Request Reviewed date:02/27/2025 09:32:11 AM Interpretation: Performing Lab: Notes/Report: Test Performed by: [place] [address] Yeast Cake Cutter: Philip Manley DO Tissue Request See Below FINAL DIAGNOSIS Skin, anterior nose, biopsy: - Actinic keratosis, see comments. - [place] [address] Electronically Signed: 02/24/2025 Jameel Herman MD COMMENT Well controlled PAS special stain is negative for fungal organisms. TISSUES 1 anterior nose CLINICAL HISTORY growing scaly lesion Nature of Procedure Performed: shave biopsy Preoperative diagnosis: D48.5 Postoperative diagnosis: _ Orientation, Direction, Special Testing: _ GROSS DESCRIPTION Specimen 1 anterior nose: Received in formalin is a 0.6 x 0.3 cm arnold skin shave. The resection margin is inked purple. The specimen is bisected, submitted entirely in cassette 1A. Dictated by ANA LAURA 02/21/2025 9:42:40 AM CDT Gross reviewed by: TL 02/22/2025 8:58:05 AM CDT Influenza DNA A/B Alere Reviewed date:03/03/2025 04:00:39 PM Interpretation:Negative Performing Lab: Notes/Report: Negative Covid DNA Alere Reviewed date:03/03/2025 04:00:16 PM Interpretation:Positive Performing Lab: Notes/Report: Positive Urinalysis with Microscopic Reviewed date:02/02/2025 08:59:47 AM Interpretation: Performing Lab: Notes/Report: Test Performed by: [place] [address] Yeast Cake Cutter: Philip Manley DO Report Forwarded By: [address] [place] [id number] UA All Small Particles 1348 UA Color Yellow UA Appear Cloudy Clear A UA pH 6.5 5.0-8.0 UA Spec Grav 1.026 1.005-1.034 UA Glucose >1000 Normal A UA Ketones Negative Negative UA Blood Trace Negative UA Protein Trace Negative A UA Urobilinogen Normal Normal UA Bili Negative Negative UA Nitrite Negative Negative UA Leuk Est 4+ Negative A UA WBC >100 <=5 /HPF H UA RBC 4 0-3 /HPF H UA Bacteria Negative Negative /HPF UA Epithelial Cells <1 0-8 /HPF UA Yeast Hunter Trace Negative /HPF A UA Mucous Negative Negative /LPF UA WBC Clumps Few Negative A Urine Culture Reviewed date:02/02/2025 08:59:47 AM Interpretation: Performing Lab: Notes/Report: Test Performed by: [place] [id number] Yeast Cake Cutter: Philip Manley DO Report Forwarded By: [address] [place] [id number] C Urine See Below Final No growth at [address] Scan : Chest without cont rast Reviewed date:11/09/2024 03:59:42 PM Interpretation:Abnormal Performing Lab: Notes/Report: Abnormal Lactate (POCT) Reviewed date:11/09/2024 04:00:11 PM Interpretation: Performing Lab: Notes/Report: Comprehensive Metabolic Pane l Reviewed date:11/10/2024 08:39:58 AM Interpretation: Performing Lab: Notes/Report: CBC w Auto Diff Reviewed date:11/09/2024 04:00:42 PM Interpretation: Performing Lab: Notes/Report: B-Type Natriuretic Peptide Reviewed date:11/10/2024 08:41:53 AM Interpretation: Performing Lab: Notes/Report: Troponin-I {cardiac marker} Reviewed date:11/10/2024 08:40:35 AM Interpretation: Performing Lab: Notes/Report: Reason For Referral No Information Medications Medication SIG (Take, Route, Frequency, Duration) Notes Start Date End Date Status Carvedilol 12.5 MG Tablet 1 Oral two dutch es a day; Duration: 90 days 03/08/2024 Active HYDROcodone-Acetaminophen 5-325 MG Tablet Take 1 to 1.5 tabs twice a day as needed Oral 03/17/2025 Active Tylenol 325 MG Capsule 2 capsules Orally every 6 hrs As needed 11/09/2024 Active ZyrTEC 10 MG Tablet Chewable 1 tablet Orally Once a day A ctive Vitamin D3 50 MCG (2000 UT) Tablet 1 tablet Orally Once a day A ctive Aspirin 81 81 MG Tablet Delayed Release 1 tablet Orally Once a day Active Vitamin B12 1000 MCG Tablet Extended Release 1 tablet Orally Once a day Active Atorvastatin Calcium 40 MG Tablet 1 Oral at bed time; Duration: 90 days 04/05/2024 Active NovoLOG FlexPen 100 UNIT/ML Solution Pen-injector give 6 units Subcutaneous with each meal Active FreeStyle Test - Strip use 1 strip to ch connor blood sugar daily; Duration: 100 days 03/08/2024 Active Glimepiride 4 MG Tablet 1 Oral twice a d ay; Duration: 90 days 04/29/2024 Active Magnesium Oxide 400 MG Tablet 2 tabs qam and 1 tab qpm Orally Active Pantoprazole Sodium 40 MG Tablet Delayed Release 1 tablet 1/2 to 1 hour before morning meal Oral every day; Duration: 90 days 02/23/2024 Active metFORMIN HCl 500 MG Tablet 2 Oral two times a day; Duration: 90 days 02/27/2023 Active Entresto 24-26 MG Tablet 1 tablet Orally Twice a day; Duration: 90 days Active Clopidogrel Bisulfate 75 MG Tablet 1 tablet Orally Once a day; Duration: 90 days Active Finasteride 5 MG Tablet 1 tablet Orally Once a day; Duration: 30 day(s) 07/22/2024 Active FreeStyle [place] Lite w/Device Kit MISCELLANEOUS; Duration: 0 05/09/2024 A ctive Tamsulosin HCl 0.4 MG Capsule 2 capsules Oral at bed time; Duration: 90 days 05/26/2024 Active Immunizations Vaccine Route Administration Date Status Manisha nts Moderna Covid-19 Vaccine 1st dose Unknown 08/04/2020 Administered [facility] ,sourcename : Historical information -from other provider Source VFC Code: : Moderna Covid-19 Vaccine 1st dose Unknown 09/01/2020 Administered [facility] ,sourcename : Historical information -from other provider Source VFC Code: : Moderna Covid-19 Vaccine 1st dose Unknown 05/10/2021 Administered MeliRosaYehuda Gillespie ,sourcename : Historical information -from other provider Source VFC Code: : Pfizer-Biontech Covid-19 Vaccine 1st dose IM Intramuscular 04/29/2024 Administered ,sourcename : N ew immunization record ,immstatus : Complete Pneumococcal conjugate PCV 13 Unknown 01/01/2017 Administered ,sourcename : Historical information -from other provider Source VFC Code: : RSV-MAb (Respiratory syncytial virus immune globulin) IM Intramuscular 06/16/2023 Administered ,sourcename : New immunization record ,immstatus : Complete Influenza, high-dose seasonal, quadrivalent, preservative free >65 yrs IM Intramuscular 05/17/2021 Administered ,sourcename : New immunization record ,immstatus : Complete Source VFC Code: : Influenza, high-dose seasonal, quadrivalent, preservative free >65 yrs IM Intramuscular 04/16/2022 Administered ,sourcename : New immunization record ,immstatus : Complete Source VFC Code: : Influenza, high dose seasonal IM Intramuscular 04/15/2024 Administered ,sourcename : N ew immunization record ,immstatus : Complete Social History Social History Additional Details Category Social Info Options Details Migrated Social History Migrated Social History Marital status: , Employment:Retired , Tobacco use: Quit in october 1973 , Alcohol use: None Problems Problem Type SNOMED Code ICD Code Onset Dates Problem Status W/U Status Risk Notes Problem Hemangioma of skin and subcutaneous tissue (225525399) Hemangioma of skin and subcutaneous tissue (228.01) 018 Problem resolved confirmed Problem Disorder of adrenal gland (99540536) Other specified disorders of adrenal glands (255.8) 017 Problem resolved confirmed Problem Hyperlipidemia (08163838) Other and unspecified hyperlipidemia (272.4) 016 Problem resolved confirmed Problem Coronary atherosclerosis (192460682) Coronary atherosclerosis (414.0) 04/11/2 016 Problem resolved confirmed Problem External hemorrhoids without complication (30222064) External hemorrhoids without mention of complication (455.3) Problem resolved confirmed Problem Orthostatic hypotension (12080474) Orthostatic hypotension (458.0) Problem resolved confirmed Problem Acute sinusitis (disorder) (21226104) Other acute sinusitis (461.8) Problem resolved confirmed Problem Acute upper respiratory infection (41270574) Acute upper respiratory infections of unspecified site (465.9) Problem resolved confirmed Problem Polyp of nasal cavity (669443166) Polyp of nasal cavity (471.0) Problem resolved confirmed Problem Diaphragmatic hernia (07756054) Diaphragmatic hernia without mention of obstruction or gangrene (553.3) Problem resolved confirmed Problem Benign prostatic hypertrophy (019760863) Hypertrophy (benign) of prostate (600.0) Problem resolved confirmed Problem Acute prostatitis (95229840) Acute prostatitis (601.0) Problem resolved confirmed Problem Disuse muscle atrophy (320986469) Muscular wasting and disuse atrophy, not elsewhere classified (728.2) Problem resolved confirmed Problem Generalized osteoarthritis (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) Osteoarthrosis and allied disorders (715) Problem resolved confirmed Problem Localized, primary osteoarthritis of the hand (229098074) Primary localized osteoarthrosis, hand (715.14) Problem resolved confirmed Problem Displacement of lumbar intervertebral disc without myelopathy (20141044) Displacement of lumbar intervertebral disc without myelopathy (722.10) Problem resolved confirmed Problem Pain in limb (40710680) Pain in soft tissues of limb (729.5) Problem resolved confirmed Problem Dizziness and giddiness (829722722) Dizziness and giddiness (780.4) Problem resolved confirmed Problem Malaise and fatigue (085169150) Other malaise and fatigue (780.79) Problem resolved confirmed Problem Disturbance of skin sensation (172981167) Disturbance of skin sensation (782.0) 11/26/2 018 Problem resolved confirmed Problem Tachycardia (8774977) Unspecified tachycardia (785.0) Problem resolved confirmed Problem Chest pain (31105848) Chest pain, unspecified (786.50) Problem resolved confirmed Problem Chest pain (87650720) Chest pain, other (786.59) Problem resolved confirmed Problem Abnormal chest sounds (20404446231399) Abnormal chest sounds (786.7) Problem resolved confirmed Problem Nausea and vomiting (19413000) Nausea with vomiting (787.01) Problem resolved confirmed Problem Dysuria (99249224) Dysuria (788.1) Problem resolved confirmed Problem Retention of urine (637112436) Other specified retention of urine (788.29) Problem resolved confirmed Problem Urgent desire to urinate (16467880) Urgency of urination (788.63) Problem resolved confirmed Problem Urinary hesitancy (4528803) Urinary hesitancy (788.64) Problem resolved confirmed Problem Laboratory test result abnormal (546755502) Other nonspecific abnormal serum enzyme levels (790.5) Problem resolved confirmed Problem Blood chemistry abnormal (187105763) Other abnormal blood chemistry (790.6) Problem resolved confirmed Problem Abnormal reflex (94489555) Abnormal reflex (796.1) Problem resolved confirmed Problem Fall on same level from slipping, tripping or stumbling (445732138) Fall from other slipping, tripping, or stumbling (E885.9) Problem resolved confirmed Problem Screening for malignant neoplasm of prostate (705635349) Special screening for malignant neoplasm of prostate (V76.44) Problem resolved confirmed Problem Candidiasis of mouth (04028716) Candidal stomatitis (B37.0) Problem resolved confirmed Problem Hemangioma of skin and subcutaneous tissue (034611561) Hemangioma of skin and subcutaneous tissue (D18.01) Problem resolved confirmed Problem Vitamin B>12< deficiency anaemia (73469768) Vitamin B12 deficiency anemia, unspecified (D51.9) Active confirmed Problem Anemia (671167374) Anemia, unspecified (D64.9) Active confirmed Problem Leukocytosis (650950004) Elevated white blood cell count, unspecified (D72.829) Problem resolved confirmed Problem Diabetic peripheral neuropathy associated with type 2 diabetes mellitus (4892206979013) Type 2 diabetes mellitus with diabetic neuropathy, unspecified (E11.40) Active confirmed Problem Disorder of adrenal gland (30750586) Other specified disorders of adrenal gland (E27.8) Problem resolved confirmed Problem Disorder of adrenal gland (44640697) Disorder of adrenal gland, unspecified (E27.9) Problem resolved confirmed Problem Vitamin B deficiency (82645695) Vitamin B deficiency, unspecified (E53.9) Active confirmed Problem Vitamin D deficiency (92001875) Vitamin D deficiency, unspecified (E55.9) Active confirmed Problem Mixed hyperlipidemia (433253231) Mixed hyperlipidemia (E78.2) Active confirmed Problem Anxiety disorder (853443854) Anxiety disorder, unspecified (F41.9) Active confirmed Problem Essential hypertension (39689076) Essential (primary) hypertension (I10) Active confirmed Problem Acute non-ST segment elevation myocardial infarction (801984086) Non-ST elevation (NSTEMI) myocardial infarction (I21.4) Active confirmed Problem Cardiomyopathy (79268371) Cardiomyopathy, unspecified (I42.9) Active confirmed Problem Left bundle branch block (75749721) Left bundle-branch block, unspecified (I44.7) Active confirmed Problem Chronic systolic heart failure (871703049) Chronic systolic (congestive) heart failure (I50.22) Active confirmed Problem Orthostatic hypotension (88743362) Orthostatic hypotension (I95.1) Problem resolved confirmed Problem Hypotension (90802689) Hypotension, unspecified (I95.9) 12/21/2 022 Active confirmed Problem Acute pansinusitis (5792681) Acute pansinusitis, unspecified (J01.40) 017 Problem resolved confirmed Problem Acute sinusitis (68754616) Acute sinusitis, unspecified (J01.90) 022 Problem resolved confirmed Problem Pneumonia (047066901) Pneumonia, unspecified organism (J18.9) 022 Problem resolved confirmed Problem Acute bronchitis (12251190) Acute bronchitis, unspecified (J20.9) 023 Problem resolved confirmed Problem Polyp of nasal cavity (296640146) Polyp of nasal cavity (J33.0) 016 Problem resolved confirmed Problem Gastro-esophageal reflux disease without esophagitis (296998702) Gastro-esophageal reflux disease without esophagitis (K21.9) 016 Active confirmed Problem Hernia of anterior abdominal wall (disorder) (057955561) Ventral hernia without obstruction or gangrene (K43.9) Active confirmed Problem Contact dermatitis (19456634) Unspecified contact dermatitis, unspecified cause (L25.9) 021 Problem resolved confirmed Problem Inflamed seborrheic keratosis (335997573) Inflamed seborrheic keratosis (L82.0) Active confirmed Problem Chondrocalcinosis (085387723) Other chondrocalcinosis , unspecified site (M11.20) 024 Active confirmed Problem Osteoarthritis of knee (659594874) Osteoarthritis of knee, unspecified (M17.9) Active confirmed Problem Localized, primary osteoarthritis of the hand (070382689) Primary osteoarthritis, unspecified hand (M19.049) 018 Problem resolved confirmed Problem Pain of right shoulder region (finding) (2128510970) Pain in right shoulder (M25.511) Problem resolved confirmed Problem Pain of left knee joint (finding) (753472736890923) Pain in left knee (M25.562) Active confirmed Problem Solitary sacroiliitis (314446759) Sacroiliitis, not elsewhere classified (M46.1) Active confirmed Problem Spinal stenosis in cervical region (43102466) Spinal stenosis, cervical region (M48.02) 024 Active confirmed Problem Degeneration of cervical intervertebral disc (14957376) Other cervical disc degeneration, unspecified cervical region (M50.30) Active confirmed Problem Cervical disc disorder (773881298) Cervical disc disorder, unspecified, unspecified cervical region (M50.90) 024 Active confirmed Problem Lumbar radiculopathy (732767035) Radiculopathy, lumbar region (M54.16) 019 Problem resolved confirmed Problem Cervicalgia (95144930) Cervicalgia (M54.2) Active confirmed Problem Low back pain (214317603) Low back pain (M54.5) 018 Active confirmed Problem Muscle atrophy (06968600) Muscle wasting and atrophy, not elsewhere classified, unspecified site (M62.50) 016 Problem resolved confirmed Problem Trochanteric bursitis of left hip (663569202658462) Trochanteric bursitis, left hip (M70.62) 022 Problem resolved confirmed Problem Enthesopathy of lower limb (271749243) Other specified enthesopathies of left lower limb, excluding foot (M76.892) 023 Problem resolved confirmed Problem Pain in limb (41418520) Pain in left finger(s) (M79.645) 018 Problem resolved confirmed Problem Disorder of bone (43464191) Disorder of bone, unspecified (M89.9) 023 Active confirmed Problem Acute renal failure syndrome (43050127) Acute kidney failure, unspecified (N17.9) 022 Problem resolved confirmed Problem Cough (53608588) Cough (R05) 017 Problem resolved confirmed Problem Shortness of breath (800735484) Shortness of breath (R06.02) 022 Problem resolved confirmed Problem Chest pain (65838886) Other chest pain (R07.89) 019 Problem resolved confirmed Problem Chest pain (08105448) Chest pain, unspecified (R07.9) 024 Active confirmed Problem Other specified symptoms and signs involving the circulatory and respiratory systems (R09.89) 016 Problem resolved confirmed Problem Nausea and vomiting (98012961) Nausea with vomiting, unspecified (R11.2) Problem resolved confirmed Problem Incontinence of feces (19241120) Full incontinence of feces (R15.9) Active confirmed Problem Paresthesia (finding) (81087004) Paresthesia of skin (R20.2) Problem resolved confirmed Problem Abnormal gait (21953963) Unspecified abnormalities of gait and mobility (R26.9) Active confirmed Problem Abnormal reflex (67410449) Abnormal reflex (R29.2) Problem resolved confirmed Problem Dysuria (14073770) Dysuria (R30.0) Problem resolved confirmed Problem Retention of urine (461876658) Other retention of urine (R33.8) Problem resolved confirmed Problem Hesitancy of micturition (6861847) Hesitancy of micturition (R39.11) Problem resolved confirmed Problem Altered mental status (653744130) Altered mental status, unspecified (R41.82) Active confirmed Problem Dizziness and giddiness (120511096) Dizziness and giddiness (R42) Problem resolved confirmed Problem Fever (397016109) Fever, unspecified (R50.9) Problem resolved confirmed Problem Early satiety (307286975) Early satiety (R68.81) Active confirmed Problem Laboratory test result abnormal (324900849) Abnormal levels of other serum enzymes (R74.8) Problem resolved confirmed Problem Blood chemistry abnormal (163444539) Other specified abnormal findings of blood chemistry (R79.89) Problem resolved confirmed Problem Lower back injury (921810281) Unspecified injury of lower back, initial encounter (S39.92XA) 023 Problem resolved confirmed Problem Fall on same level from slipping, tripping or stumbling (730372911) Fall on same level from slipping, tripping and stumbling without subsequent striking against object, initial encounter (W01.0XXA) 019 Problem resolved confirmed Problem Presence of orthopedic joint implant (376816006) Presence of other bone and tendon implants (Z96.7) 023 Active confirmed Problem Fall () Unspecified fall , initial encounter (W19.XXXA) Active confirmed Problem Spinal stenosis of lumbar region (14914976) Spinal stenosis, lumbar region without neurogenic claudication (M48.061) 024 Active confirmed Problem Traumatic AND/OR non-traumatic injury (618094826) Other injury of unspecified body region, initial encounter (T14.8XXA) Active confirmed Problem Pain due to othe r internal prosthetic devices, implants and grafts, initial encounter (T85.848A) Active confirmed Problem Encounter for screening for COVID-19 (Z11.52) Problem resolved confirmed Problem Exposure to acute respiratory syndrome coronavirus 2 (493041781) Contact with and (suspected) exposure to COVID-19 (Z20.822) 022 Problem resolved confirmed Problem Acute cough (470332971832039754 ) Acute cough (R05.1) Problem resolved confirmed Problem Cough (finding) (29002507) Cough, unspecified (R05.9) Problem resolved confirmed Problem Body mass index 20-24 - normal (682478891) Body mass index (BMI) 23.0-23.9, adult (Z68.23) 024 Active confirmed Vital Signs Heart Rate 83 /min 03/03/2025 Temperature 99.4 degrees Fahrenheit 03/03/2025 Respiratory Rate 20 /min 02/20/2025 Height-cm 177.8 cm 03/03/2025 Oximetry 99 % 03/03/2025 Blood pressure diastolic 76 mm Hg 03/03/2025 Weight-kg 78.06 kg 08/12/2024 Height 70.00 in 03/03/2025 Blood pressure systolic 130 mm Hg 03/03/2025 Weight 172.1 lbs 08/12/2024 BMI 24.69 kg/m2 08/12/2024 Encounters Encounter Location Date Provider Diagnosis [facility] [address] [place] [address] 05/30/2024 Dr. Cynthia Casas Other cervical disc degeneration, unspecified cervical region M50.30 ; Ventral hernia without obstruction or gangrene K43.9 ; Vitamin D deficiency, unspecified E55.9 ; Disorder of bone, unspecified M89.9 ; Type 2 diabetes mellitus with diabetic neuropathy, unspecified E11.40 ; Unspecified abnormalities of gait and mobility R26.9 ; Altered mental status, unspecified R41.82 ; Cervicalgia M54.2 ; Generalized enlarged lymph nodes R59.1 ; Chest pain, unspecified R07.9 ; Other chondrocalcinosis, unspecified site M11.20 ; Irritability and anger R45.4 and Encounter for screening for malignant neoplasm of prostate Z12.5 [place] [phone] 08/12/2024 Dr. Cynthia Casas Acute prostatitis N41.0 ; Type 2 diabetes mellitus with diabetic neuropathy, unspecified E11.40 ; Cardiomyopathy, unspecified I42.9 and Pancreatic cyst K86.[address] [address] 11/09/2024 Dr. Cynthia Casas Shortness of breath R06.02 ; Acute hypotension I95.9 ; Weakness R53.1 ; Chronic systolic (congestive) heart failure I50.22 ; Cardiomyopathy, unspecified I42.9 and Pneumonia due to infectious organism, unspecified laterality, unspecified part of lung J18.[address] [address] 02/20/2025 Dr. Cynthia Casas Neoplasm of uncertain behavior of skin D48.5 ; Osteoarthritis of left index finger M19.042 ; Osteoarthritis of right index finger M19.041 and Paresthesia R20.[address] [address] 03/03/2025 Dr. Cynthia Casas Upper respiratory infection, acute J06.9 ; COVID-19 U07.1 and Acute non-recurrent sinusitis, unspecified location J01.[address] [address] 06/04/2024 Provider Migration [address] [address] 06/05/2024 Provider Migration [facility] [address] [place] [address] 06/24/2024 Dr. Cynthia Casas [facility] [address] [place] [address] 06/24/2024 Dr. Cynthia Casas [facility] [address] [place] [address] 07/01/2024 Dr. Cynthia Casas [facility] [address] [place] [address] 07/04/2024 Dr. Cynthia Casas Urinary tract infection without hematuria, site unspecified N39.0 [facility] [address] [place] [address] 07/04/2024 Dr. Cynthia Casas [facility] [address] [place] [address] 07/05/2024 Dr. Cynthia Casas Abnormal urine finding R82.90 [facility] [address] [place] [address] 07/22/2024 Dr. Cynthia Casas [facility] [address] [place] [address] 08/10/2024 Dr. Cynthia Casas Dysuria R30.0 [facility] [address] [place] [address] 08/12/2024 Dr. Cynthia Casas [facility] [address] [place] [address] 08/16/2024 Dr. Cynthia Casas Abnormal urine R82.90 and Acute UTI N39.0 [facility] [address] [place] [address] 08/19/2024 Dr. Cynthia Casas [facility] [address] [place] [address] 08/26/2024 Dr. Cynthia Casas [facility] [address] [place] [address] 08/26/2024 Dr. Cynthia Casas [facility] [address] [place] [address] 09/01/2024 Dr. Cynthia Casas [facility] [address] [place] [address] 09/01/2024 Dr. Cynthia Casas Candidiasis B37.9 [facility] [address] [place] [address] 09/03/2024 Lora Betsy Acute prostatitis N41.0 [facility] [address] [place] [address] 09/16/2024 Dr. Cynthia Casas [facility] [address] [place] [address] 09/16/2024 Dr. Cynthia Casas [facility] [address] [place] [address] 09/21/2024 Dr. Cynthia Casas Urinary tract infection without hematuria, site unspecified N39.0 and Candidiasis B37.9 [facility] [address] [place] [address] 09/23/2024 Dr. Cynthia Casas [facility] [address] [place] [address] 10/14/2024 Dr. Cynthia Casas [facility] [address] [place] [address] 10/24/2024 Dr. Cynthia Casas Type 2 diabetes mellitus with diabetic neuropathy, unspecified E11.40 [facility] [address] [place] [address] 10/28/2024 Dr. Cynthia Casas [facility] [address] [place] [address] 11/02/2024 Dr. Cynthia Casas [facility] [address] [place] [address] 11/10/2024 Dr. Cytnhia Casas [facility] [address] [place] [address] 11/14/2024 Dr. Cynthia Casas [facility] [address] [place] [address] 01/03/2025 Dr. Cynthia Casas [facility] [address] [place] [address] 01/13/2025 Dr. Cynthia Casas [facility] [address] [place] [address] 02/10/2025 Dr. Cynthia Casas [facility] [address] [place] [address] 02/23/2025 Dr. Cynthia Casas [facility] [address] [place] [address] 03/10/2025 Dr. Cynthia Casas [facility] [address] [place] [address] 03/17/2025 Dr. Marie [address] [address] 03/24/2025 Dr. Cynthia Casas [address] [address] 03/24/2025 Dr. Cynthia Casas [address] [address] 03/30/2025 Dr. Cynthia Casas [address] [address] 05/03/2025 Dr. Cynthia Casas Right knee pain, unspecified chronicity M25.561 Assessments Encounter Date Diagnosis (ICD Code) Assessment Notes Treatment Notes Treatment Clinical Notes Section Notes 10/24/2024 Type 2 diabetes mellitus with diabetic neuropathy, unspecified (ICD-10 - E11.40) 09/03/2024 Acute prostatitis (ICD-10 - N41.0) 08/16/2024 Abnormal urine (ICD-10 - R82.90) 08/12/2024 Type 2 diabetes mellitus with diabetic neuropathy, unspecified (ICD-10 - E11.40) 08/12/2024 Acute prostatitis (ICD-10 - N41.0) continue bactrim DS BID for 2 weeks, possibly extend to 4 weeks. 09/01/2024 Candidiasis (ICD-10 - B37.9) 08/16/2024 Acute UTI (ICD-10 - N39.0) 09/21/2024 Urinary tract infection without hematuria, site unspecified (ICD-10 - N39.0) 09/21/2024 Candidiasis (ICD-10 - B37.9) 02/20/2025 Neoplasm of uncertain behavior of skin (ICD-10 - D48.5) Post procedure with path Patient was informed of the following: Apply Vaseline or Aquaphor until the wound is healed or until sutures are removed in approximately 10 days. Wash area gently with soap and water. Monitor for signs and symptoms of infection and call the office with any questions or concerns. Patient will be contacted with pathology results when available. 02/20/2025 Osteoarthritis of left index finger (ICD-10 - M19.042) Most likely this is not related to his neck in terms of the paresthesias. There is mechanical deformity consistent with osteoarthritis. 11/09/2024 Shortness of breath (ICD-10 - R06.02) 27 mins face to face with additional 15 mins to review labs, CT and commnicate with patient for a total of 42 mins. Low Oxygen Levels and Suspected Pneumonia - Low oxygen levels, borderline tachycardia, and symptoms suggestive of pneumonia. Less concern for a blood clot due to Eliquis use. Infection is suspected. - Order a CT scan without contrast to assess for pneumonia. This will help determine the presence of fluid or infection in the lungs. - Perform blood work to be completed at [facility] for faster results. This will provide additional information on the patient's condition and help guide treatment decisions. - Consider Rocephin antibiotic shot post-CT scan to avoid hospitalization. This is to ensure prompt treatment of any detected infection. - Monitor oxygen levels closely to assess the need for further intervention or hospitalization. -Concern for PE lower due to eliquis on board. Atrial Fibrillation - Continue Eliquis as prescribed. 11/09/2024 Acute hypotension (ICD-10 - I95.9) push fluids, likely from illness 07/04/2024 Urinary tract infection without hematuria, site unspecified (ICD-10 - N39.0) 05/03/2025 Right knee pain, unspecified chronicity (ICD-10 - M25.561) 05/30/2024 Type 2 diabetes mellitus with diabetic neuropathy, unspecified (ICD-10 - E11.40) 05/30/2024 Vitamin D deficiency, unspecified (ICD-10 - E55.9) 05/30/2024 Ventral hernia without obstruction or gangrene (ICD-10 - K43.9) 05/30/2024 Other chondrocalcinosis, unspecified site (ICD-10 - M11.20) 05/30/2024 Other cervical disc degeneration, unspecified cervical region (ICD-10 - M50.30) 05/30/2024 Cervicalgia (ICD-10 - M54.2) 05/30/2024 Disorder of bone, unspecified (ICD-10 - M89.9) 05/30/2024 Chest pain, unspecified (ICD-10 - R07.9) 05/30/2024 Unspecified abnormalities of gait and mobility (ICD-10 - R26.9) 05/30/2024 Altered mental status, unspecified (ICD-10 - R41.82) 05/30/2024 Irritability and anger (ICD-10 - R45.4) 05/30/2024 Generalized enlarged lymph nodes (ICD-10 - R59.1) 05/30/2024 Encounter for screening for malignant neoplasm of prostate (ICD-10 - Z12.5) 03/03/2025 COVID-19 (ICD-10 - U07.1) 03/03/2025 Upper respiratory infection, acute (ICD-10 - J06.9) 08/10/2024 Dysuria (ICD-10 - R30.0) 07/05/2024 Abnormal urine finding (ICD-10 - R82.90) 03/03/2025 Acute non-recurrent sinusitis, unspecified location (ICD-10 - J01.90) 11/09/2024 Weakness (ICD-10 - R53.1) rule out sepsi with bloodwork including lactic acid. 02/20/2025 Osteoarthritis of right index finger (ICD-10 - M19.041) Most likely this is not related to his neck in terms of the paresthesias. There is mechanical deformity consistent with osteoarthritis. 08/12/2024 Cardiomyopathy, unspecified (ICD-10 - I42.9) 08/12/2024 Pancreatic cyst (ICD-10 - K86.2) 02/20/2025 Paresthesia (ICD-10 - R20.2) likely from nerve impingement related to joint swelling and deformity and not from cervical spine stenosis. 11/09/2024 Chronic systolic (congestive) heart failure (ICD-10 - I50.22) 11/09/2024 Cardiomyopathy, unspecified (ICD-10 - I42.9) f/u with cardio - worried about CHF possibly contributing, check labs. 11/09/2024 Pneumonia due to infectious organism, unspecified laterality, unspecified part of lung (ICD-10 - J18.9) CT shows some bilateral infiltrates which likely represent pneumonia. 08/12/2024 Other Prostatitis - Presence of bacteria and white blood cells in urine suggests infection. Possible pathogens include Enterobacter, Proteus, and E. coli. Caffeine and sugar intake may exacerbate symptoms. Keep flomax at 2 daily and monitor for hypotension. - Continue Bactrim twice daily. Consider cephalexin if resistance is noted. If the culture is negative for bacteria, consider an antifungal treatment due to the potential impact of Jardiance. Avoid caffeine and high sugar intake. Monitor for worsening symptoms such as fever or chills. Cardiomyopathy and Reduced Endurance - Endurance is reduced, possibly related to cardiomyopathy. Previous echocardiogram from November 2021 showed EF of 30-35%, improved to 40-45% - Order repeat echocardiogram to assess current cardiac function. Monitor blood pressure and adjust medications as needed to manage endurance and hypotension. Pancreatic Cyst - MRI suggests a likely benign pancreatic cyst. - Repeat MRI in two years unless symptoms develop. DM2 - Jardiance may contribute to urinary symptoms due to increased sugar in urine. - Consider discontinuing Jardiance if culture shows yeast or no bacteria. -Keep off caffeine including chocolate. Reduce sugar. 11/09/2024 Other Pt notified of results including WBC elevation, and reassuring results otherwise. Plan clinical f/u recheck in 2 weeks. 03/03/2025 Other RECOMMENDATIONS : Increase fluid intake. Get plenty of rest. Treat fever and/or aches and pains with Tylenol and Motrin OTC unless contraindicated. I recommended the patient RTC if not improving or if worsening. Plan Of Treatment Pending Test Test Name Order Date XR KNEE RT 3 VIEW 05/03/2025 Insurance Providers Payer Name Payer Address Payer Phone Subscriber Number Group Number Insured Name Patient Relationship to Insured Coverage Start Date Coverage End Date [facility] [place] B [address] [place] [address] [id number] Nubia Lopez Self - patient is the insured 2 [employer] [address] [place] [address] [id number] HemNubia lux Self - patient is the insured 2 [facility] [place] Medicare RHC [address] [place] [address] [id number] HemNubia lux Self - patient is the insured 2 Medications Administered Medication Instructions Date of Administration Dosage Notes Rocephin 11/09/2024 1 g Medical (General) History Medical History History ICD Code Vitamin B12 deficiency anemia, unspecifi ed D51.9 Anemia, unspecified D64.9 Type 2 diabetes mellitus with diabetic n europathy, unspecified E11.40 Vitamin D deficiency, unspecified E55.9 Mixed hyperlipidemia E78.2 Anxiety disorder, unspecified F41.9 Essential (primary) hypertension I10 Non-ST elevation (NSTEMI) myocardial inf arction I21.4 Cardiomyopathy, unspecified I42.9 Left bundle-branch block, unspecified I4 4.7 Chronic systolic (congestive) heart fail ure I50.22 Gastro-esophageal reflux disease without esophagitis K21.9 Ventral hernia without obstruction or ga ngrene K43.9 Osteoarthritis of knee, unspecified M17. 9 Other chondrocalcinosis, unspecified sit e M11.20 Sacroiliitis, not elsewhere classified M 46.1 Spinal stenosis, cervical region M48.02 Other cervical disc degeneration, unspec ified cervical region M50.30 Cervical disc disorder, unspecified, uns pecified cervical region M50.90 Spinal stenosis, lumbar region without n eurogenic claudication M48.061 Surgical History Surgery Date(Month/Year) back surgery ,notes : 01/03/2019 Lumbar di scetomy Neck fusion ,notes : cervical spinal fus ion 1989 Coronary artery stent placement ,notes : CABG > 5 1999 Ablation ,notes : cardiac ablation Cataract removal ,notes : 2009 shoulder surgery ,notes : 2017 rotator c uff repair Laparotomy, exploratory ,notes : 1966 Dr Matos - Marisel Device Lot#[id number] Ref#[id number] 12/12/2024
--- OUTSIDE RECORDS SUMMARY | 2025-05-06 11:56 | XMS_ITS | Patient Health Record ---
Author Organization [facility] Address [address] [place] [address] Care Team Providers Care Entry Level Assistant Manager Name Role Phone Cynthia Casas Primary Care Provider Unavailyeni Schrader Jr, MD, Zane Unavailable ALLERGIES No Known Allergies REASON FOR REFERRAL No Information MEDICATIONS Medication SIG (Take, Route, Frequency, Duration) Notes Start Date End Date Status Glimepiride 4 MG 1 tablet/ 2 times a day 05/16/2024 Active metFORMIN HCl 500 MG 2 tablets / 2 times a day 05/16/2024 Active Melatonin 5 MG 1 tablet / bedtime 05/16/2024 Active Entresto 24-26 MG 1 tablet / 2 times a day 05/16/2024 Active Carvedilol 12.5 MG 1 tablet/ 2 times a day 05/16/2024 Active Pantoprazole Sodium 1 tablet / o nce a day; Prescribed By: Cynthia Casas MD Active Jardiance 10 MG 1 tablet / once a day 05/16/2024 Active Tamsulosin HCl 0.4 MG ! capsule /every evening 05/16/2024 Active Atorvastatin Calcium 40 MG 1 tablet / bedtime 05/16/2024 Active Aspirin 1 tablet / bedtime; Prescribed By: Cynthia Casas MD Active Ibuprofen 200 MG 4 tablets / every 8 hours prn 05/16/2024 Active Tylenol Extra Strength 500 MG 3 tablets / bedtime 05/16/2024 Activ e IMMUNIZATIONS Vaccine Route Administration Date Status Comme nts pneumoccocal Unknown 01/01/2017 Administered Influenza Unknown 04/22/2024 Administered SOCIAL HISTORY Tobacco Use: Social History Observation [...] primary osteoarthritis of knee (M17.0) Active confirmed 738911326 Problem Chondrocalcinosis of right knee (M11.261) Active confirmed [id number] Problem Chondrocalcinosis of left knee (M11.262) Active confirmed [id number] VITAL SIGNS Height 70 in 05/19/2024 Weight 175 lbs 05/19/2024 BMI 25.11 kg/m2 05/19/2024 Encounters Encounter Location Date Provider Diagnosis [facility] [address], [place] [address] 05/19/2024 Zane Schrader Jr, MD Bilateral primary [...] - M11.262) PLAN OF TREATMENT No Information Insurance Providers Payer Name Payer Address Payer Phone Subscriber Number Group Number Insured Name Patient Relationship to Insured Coverage Start Date Coverage End Date Medicare [address] [place] [phone] [id number] Nubia Lopez Self - patient is the insured [facility] [address] [place] [address] [id number] Nubia Lopez Self - patient is the insured MEDICAL (GENERAL) HISTORY Medical History History ICD Code Benign prostatic hypertrophy GERD - Gastro-esophageal reflux disease Congestive heart failure High Cholesterol Heart Attack Diabetes Arthritis Surgical History Surgery Date(Month/Year) CABG x 5 - Coronary artery bypass grafts x 5 1999 Repair of rotator cuff of shoulder 2018 lumbar diskectomy 2019 Cervical spinal fusion by anterior techn ique 2019 Cervical spinal fusion by anterior techn ique 1994
--- OUTSIDE RECORDS SUMMARY | 2025-05-06 11:56 | XMS_ITS | Clinical Summary ---
Author Organization [facility] Address [address] [place] [address] Care Team Providers [employer] Truck Driver Name Role Phone Cynthia Casas MD Primary Care Provider Allergies Active Allergy Reactions Criticality Noted Date Comments Meperidine Nausea And Vomiting 01/14/2021 Medications aspirin 81 mg enteric coated tablet Take 1 tablet (81 mg total) by mouth 09/11/2014 Active atorvastatin (LIPITOR) 40 mg tablet Take 1 tablet (40 mg total) by mouth Active carvedilol (COREG) 6.25 mg tablet 04/05/2019 Active cholecalciferol (VITAMIN D-3) 2000 unit capsule Take 1 capsule (2,000 Units total) by mouth 09/11/2014 Active magnesium oxide 500 mg capsule Take 1 tablet by mouth 12/06/2015 Active metFORMIN (GLUCOPHAGE) 500 mg tablet 12/04/[address] (PROTONIX) 40 mg EC tablet 10/04/2018 Active tamsulosin (FLOMAX) 0.4 mg extended release capsule 11/16/2018 Act jennifer cyanocobalamin, vitamin B-12, 1,000 mcg capsule Take 1,000 mcg by mouth daily Active glimepiride (AMARYL) 4 mg tablet Take 1 tablet (4 mg total) by mouth 2 (two) times a day Active HYDROcodone-jann taminophen (NORCO) 5-325 mg per tablet TAKE 1 TABLET BY MOUTH EVERY 4 TO 6 HOURS NEEDED FOR PAIN 12/12/2020 Active ibuprofen (ADVIL,MOTRIN) 800 mg tablet Take 1 tablet (800 mg total) by mouth every 8 (eight) hours as needed 09/11/2014 Active FreeStyle Test strip daily 06/12/2023 Active penicillin v potassium (VEETID) 500 mg tablet TAKE 1 TABLET BY MOUTH FOUR TIMES A DAY UNTIL FINISHED 07/15/2023 Active Entresto 24-26 mg tablet Take 1 tablet by mouth 2 (two) times a day 05/05/2023 Active carvediloL (COREG) 12.5 mg tablet Take 1 tablet (12.5 mg total) by mouth 2 (two) times a day 08/14/2023 Active ferrous gluconate 324 mg (38 mg of elemental iron) tablet Take 1 tablet (324 mg total) by mouth daily 08/19/2023 Active Active Problems Problem Noted Date Diagnosed Date History of heart failure 01/14/2021 S/P CABG x 5 03/27/2020 Dilated cardiomyopathy 09/04/2017 Coronary artery disease invo lving [place] coronary artery of [place] heart without angina pectoris 01/14/2016 Essential hypertension 01/14/2016 Mixed hyperlipidemia 01/14/2016 SVT (supraventricular tachycardia) 01/14/2016 Type 2 diabetes mellitus without complication Calculus of ureter 08/19/2012 Impotence of organic origin 08/19/2012 Diabetes mellitus 08/19/2012 Notalgia 08/19/2012 Surgical History Surgery Date Site/Laterality Comments ARTHRODESIS Arthrodesis Cervical - (Added by TW Conv) CO REPAIR FIRST ABDOMINAL WALL HERNIA Ventral Hernia Repair - (Added by TW Conv) CO CORONARY ARTERY BYPASS 1 CORONARY VENOUS GRAFT CABG - (Added by TW Conv) INGUINAL HERNIA REPAIR Inguinal Hernia Repair - (Added by TW Conv) BACK SURGERY CERVICAL DISCECTOMY APPENDECTOMY 1964 KNEE ARTHROSCOPY W/ LATERAL RELEASE knees 1985 CATARACT EXTRACTION 2012 CORONARY ARTERY BYPASS GRAFT 2000 SPINE SURGERY discectomy: cervical 1989, 2019; lumber 2019 VASECTOMY 1978 FL FLUORO GUIDED INJECTION HIP LEFT 09/29/2023 Left Medical History Medical History Date Comments Personal history of other diseases of the circulatory system History of hypertension - (Added by TW Conv) Personal history of other diseases of the circulatory system History of angina pectoris - (Added by TW Conv) Personal history of other diseases of the digestive system History of peritonitis - (Added by TW Conv) GERD (gastroesophageal reflu x disease) 15 years ago Arthritis 20 years ago Benign prostatic hyperplasia 10 years ago Cataract had surgery 10 years ago Diabetes mellitus 10 years Heart disease 23 years Family History Medical History Relation Name Comments Heart disease Brother Alistair Obesity Brother Alistair Heart attack Father hannah Hypertension Father hannah Cancer Mother graeme Diabetes Mother graeme Relation Name Status Comments Brother Alistair Father hannah Mother graeme Social History Tobacco Use Types Packs/Day Years Used Date Smoking Tobacco: Former Cigarettes 0.5 10 0 12/05/1963 - 10/07/1973 Smokeless Tobacco: Never Tobacco Cessation:Counseling Given: Not Answered Alcohol Use Standard Drinks/Week Comments Never 0 (1 standard drink = 0.6 oz pur e alcohol) AUDIT-C Answer Date Recorded Frequency of Alcohol Consumption Never 05/26/2019 Average Number of Drinks Not on file 019 Frequency of Binge Drinking Not on file 05/07 Sex and Gender Information Value Date Recorded Sex Assigned at Not on file 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 Gender Identity Not on file Sexual Orientation Not on file Occupation Industry Job Start Date Job End Date Retired Not on file Not on file Not on file Obstetrics History Last Filed Vital Signs Vital Sign Reading Time Taken Comments Blood Pressure 136/86 08/19/2012 9:50 AM DAY LIGHT RELIEF OPERATOR Pulse 70 08/19/2012 9:50 AM DAY LIGHT RELIEF OPERATOR Temperature - - Respiratory Rate - - Oxygen Saturation - - Inhaled Oxygen Concentration - - Weight 76.2 kg (168 lb) 08/10/2023 10:15 AM DAY LIGHT RELIEF OPERATOR Height 179.1 cm (5' 10.5) 08/10/2023 10:[address] Body Mass Index 23.76 08/10/2023 10:15 AM DAY LIGHT RELIEF OPERATOR Plan of Treatment Health Maintenance Due Date Last Done Comments Albumin Creatinine Ratio, Urine 1948 Depression Screening 1948 Fall Risk Assessment 1948 Hemoglobin A1C 1948 Hepatitis C Screening 1948 eGFR 1948 Dilated Eye Exam 1948 Foot Exam 1948 Lipid Panel 1948 DTaP/Tdap/Td Vaccine (1 - Tdap) 01/26/1959 Hepatitis B Screening 01/26/1966 Pneumococcal vaccine 65+ (1 of 2 - PCV) 01/26/1967 Zoster Vaccine (1 of 2) 01/26/1998 Abdominal Aortic Aneurysm (A AA) Screen 01/26/2013 Well Visit 65+ 01/26/2013 Influenza Vaccine (#1) 2025 Colon Cancer Screening-CT Colonography Discontinued 07/17/2016, 07/17/2016, 05/01/2011 Colon Cancer Screening-Colonoscopy Discontinued 07/17/2016, 07/17/2016, 05/01/2011 Colon Cancer Screening-DNA Stool Discontinued 07/17/2016, 07/17/2016, 05/01/2011 Colon Cancer Screening-FIT Discontinued 07/17, 07/17/2016, 05/01/2011 Colon Cancer Screening-FOBT Discontinued 07/06, 07/17/2016, 05/01/2011 Colon Cancer Screening-Sigmoidoscopy Discontinue d 07/17/2016, 07/17/2016, 05/01/2011 Colorectal Cancer Screening Discontinued Medical Devices Implanted Type Area Television Audio Engineer Device Identifier Shelf Expiration Date Model / Serial / Lot Protean Payment Insertable Granite Countertop Installer-10/07/19 23 Implanted:Qty: 1 on 10/06/2022 by Timbo Matos MD Other - see comments N/A: Heart [id number] / [id number] / Procedures Procedure Name Priority Date/Time Associated Diagnosis Comments COLONOSCOPY IMAGES 07/17/2016 from Last 3 Months or Most Recently Relevant to Health Maintenance Results * COLONOSCOPY IMAGES (07/17/2016) Anatomical Region Laterality Modality Other Narrative 07/17/2016 Ordered by an unspecified provider. Historical Provider GI PROCEDURE ORDERABLES F inal Result from Last 3 Months or Most Recently Relevant to Health Maintenance Insurance MEDICARE [facility] MEDICARE [facility] MEDICARE [facility] [place] Care Teams Regional [employer] Truck Driver Relationship Specialty Start Date End Date Cynthia Casas MD PCP - General Family Medicine 03/02/19
--- OUTSIDE RECORDS SUMMARY | 2025-05-06 11:56 | XMS_ITS | Clinical Summary ---
Author Organization [facility] Address [address] [place] [address] Care Team Providers Care Remote Sensing Technician Name Role Phone Cynthia Casas MD Primary Care Provider + [phone] Source Comments [facility],non-owned Affiliates and Associated Physician Practices is amultiple site organization consisting of ambulatory clinics and hospital sitesin [place], [place], [place] and [place]. This disclosure is being madepursuant to the Care Everywhere program and may not contain all information available regarding this patient. Last updated 18.[facility] [employer] Allergies Active Allergy Reactions Criticality Noted Date Comments Meperidine Nausea and/or Vomiting Medications * Be aware that medications may not be up to date on this document. Alwaysverify current medications with the patient. Aspirin (CALI LOW DOSE) 81 MG Take 1 tablet by mouth once daily 09/11/2014 Active cyclobenzaprine (FLEXERIL) 10 MG tablet Take 10 mg by mouth 3 times daily as needed 10/11/2018 Active losartan (COZAAR) 25 MG tablet Take 12.5 mg by mouth once daily 09/04/2018 Active metFORMIN (GLUCOPHAGE) 500 MG tablet Take 1,000 mg by mouth 2 times daily with morning and evening meal 12/04/2018 Active pantoprazole EC (PROTONIX) 40 MG tablet Take 40 mg by mouth once daily 10/04/2018 Active tamsulosin (FLOMAX) 0.4 MG capsule Take 0.4 mg by mouth 2 times daily 11/16/2018 Active ALPRAZolam (XANAX) 0.25 MG tablet Take 1 tablet by mouth 3 times daily as needed 09/05/2015 Active atorvastatin (LIPITOR) 40 MG tablet Take 40 mg by mouth once daily Active Vitamin D3 (CHOLECALCIFERO L) 2000 units capsule Take 2,000 Units by mouth once daily 09/11/2014 Active Magnesium 500 MG Take 1 tablet by mouth 2 times daily 12/06/2015 Active empagliflozin (JARDIANCE) 10 MG tablet Take 10 mg by mouth once daily Active Cyanocobalamin (B-12) 1000 MCG Take 1,000 mcg by mouth once daily Active carvedilol (COREG) 6.25 MG tablet Take 6.25 mg by mouth 2 times daily with morning and evening meal Active HYDROcodone-jann taminophen (NORCO) 7.5-325 MG tablet Take 1 tablet by mouth every 6 hours as needed for Pain Active DULoxetine (CYMBALTA) 30 MG capsule Take 1 capsule by mouth once daily 30 capsule 03/27/2020 Active Active Problems Problem Noted Date Diagnosed Date S/P CABG x 5 03/27/2020 Coronary artery disease invo lving [place] coronary artery of [place] heart without angina pectoris 01/14/2016 Overview (03/27/2020): CABG in 1999. Exercise Stress SPECT MPI 03/05/2018: prior nontransmural myocardial infarction in the distribution of the basal RCA/PDA segment. In the setting of prior bypass grafting to these segments, this perfusion defect may be indicated patent graft which supplies the mid to distal inferior/inferoseptal segments, with a prior nontransmural infarction affecting the proximal segments. EF of 63%. Essential hypertension 01/14/2016 Mixed hyperlipidemia 01/14/2016 S/P RF ablation operation for arrhythmia 016 History of heart failure Resolved Problems Problem Noted Date Diagnosed Date Resolved Date Dilated cardiomyopathy 09/04/201703/27 Family History Medical History Relation Name Comments CAD (Coronary Artery Disease) Brother CAD (Coronary Artery Disease) Father Cancer Father CAD (Coronary Artery Disease) Mother Cancer Mother Relation Name Status Comments Brother Father Maternal Grandfather Maternal Grandmother Mother Paternal Grandfather Paternal Grandmother Social History Tobacco Use Types Packs/Day Years Used Date Smoking Tobacco: Former Cigarettes 1 4 0 10/07/1969 - 10/07/1973 Smokeless Tobacco: Never Alcohol Use Standard Drinks/Week Comments Yes 0 (1 standard drink = 0.6 oz pur e alcohol) Occasional Sex and Gender Information Value Date Recorded Sex Assigned at Not on file 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 Gender Identity Not on file Sexual Orientation Not on file Last Filed Vital Signs Vital Sign Reading Time Taken Comments Blood Pressure 114/82 03/27/2020 11:41 AM CDT Pulse 84 03/27/2020 11:41 AM CDT Temperature - - Respiratory Rate - - Oxygen Saturation 97% 03/27/2020 11:41 AM CDT Inhaled Oxygen Concentration - - Weight 70.3 kg (155 lb) 03/27/2020 11:41 AM CDT Height 177.8 cm (5' 10) 03/27/2020 11:41 AM CDT Body Mass Index 22.24 03/27/2020 11:41 AM CDT Plan of Treatment Health Maintenance Due Date Last Done Comments HEPATITIS C SCREENING 01/22/1966 DTAP/TDAP/TD VACCINES (1 - Tdap) 01/26/1967 PNEUMOCOCCAL VACCINE 50+ (1 of 1 - PCV) 01/26/1998 ZOSTER VACCINE (1 of 2) 01/26/1998 Respiratory Syncytial Virus (RSV) Vaccine Pt: or over 60 yrs (1 - 1-dose 75+ series) 01/26/2023 DEPRESSION SCREENING 07/06/2024 COVID-19 VACCINE (1 - 2023-2 5 season) 2025 INFLUENZA VACCINE (#1) 2025 HEPATITIS B VACCINE Aged Out No longe r eligible based on patient's age to complete this topic HIB VACCINE Aged Out No longer eligi ble based on patient's age to complete this topic HPV VACCINE Aged Out No longer eligi ble based on patient's age to complete this topic MENINGOCOCCAL (Group B) VACC INE SHARED DECISION-MAKING Aged Out No longer eligibl e based on patient's age to complete this topic MENINGOCOCCAL GROUPS A/C/Y/W VACCINE Aged Out No longer eligible b ased on patient's age to complete this topic Insurance [address] [address] [facility] [address] [address] [facility] Care Teams Remote Sensing Technician Relationship Specialty Start Date End Date Cynthia Casas MD [address] [place] [address] PCP - General Family Medicine 12/22/18
--- OUTSIDE RECORDS SUMMARY | 2025-05-06 11:56 | XMS_ITS | Encounter Summary ---
Author Organization [facility] Address [address] [place] [address] Care Team Providers Care Automobile Accessories Installer Name Role Phone Cynthia Casas MD Primary Care Provider Grecia Bal [facility]- Unavailable [phone] Encounter Details Date Type Department Care Team (Late st Contact Info) Description 12/06/2015 Abstract [facility] [address] [place] [address] Chaz Márquez PA-C [address] [place] [address] Social History Tobacco Use Types Packs/Day Years Used Date Smoking Tobacco: Former Cigarettes Q uit: 1974 Alcohol Use Standard Drinks/Week Comments No 0 (1 standard drink = 0.6 oz pur e alcohol) Sex and Gender Information Value Date Recorded Sex Assigned at Male 08/22/2024 3:31 PM PRESIDENT AND CEO Legal Sex Male 11:08 PM CDT Gender Identity Not on file Sexual Orientation Not on file Occupation Industry Job Start Date Job End Date 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
== END 2025-05-06 11:53 | disposition home or self-care (01) ==
PROVIDERS: PCP Family Medicine; Visit Provider Family Medicine
DX: M25.561 Pain in right knee (principal)
CPT/HCPCS: 73562

== ENCOUNTER 2025-05-21 07:26 | Outpatient (CLI) | payer MEDICARE, SELFPAY ==
--- NOTE | ~2025-05-21 | MR_ITS ---
EXAMINATION: MR cervical spine wo con DATE: 05/21/2025 08:47 INDICATION: Limb paralysis. Spinal stenosis of the cervical region. TECHNIQUE: Magnetic resonance imaging (MRI) of the cervical spine was performed without intravenous contrast. COMPARISON: None FINDINGS: There is kyphosis of cervical spine. There are changes of anterior fusion procedure from C3 to C6 with interbody devices. There is an anterior plate with screws at C3-C4. There is healed interbody bone graft at C4-C5 and C5-C6. There is moderately decreased disc height at C6-C7. The spinal cord signal intensity is normal. The following disc levels are specifically discussed: C2-C3: There is a central protrusion. There is no uncovertebral joint osteoarthritis. There is severe bilateral facet joint osteoarthritis. There is mild bilateral neural foraminal stenosis. There is no central canal stenosis. C3-C4: There is moderate bilateral uncovertebral joint hypertrophy. There is severe bilateral facet joint osteoarthritis. There is moderate right and mild left neural foraminal stenosis. There is mild central canal stenosis. C4-C5: There is mild bilateral uncovertebral joint hypertrophy. There is mild bilateral facet joint osteoarthritis. There is mild right neural foraminal stenosis. There is no central canal stenosis. C5-C6: There is mild bilateral uncovertebral joint hypertrophy. There is mild bilateral facet joint hypertrophy. There is no neural foraminal stenosis. There is no central canal stenosis. C6-C7: The disc is bulging. There is moderate right and severe left uncovertebral joint osteoarthritis. There is severe bilateral facet joint osteoarthritis. There is mild bilateral neural foraminal stenosis. There is mild central canal stenosis. C7-T1: There is a central extrusion. There is no uncovertebral joint osteoarthritis. There is severe bilateral facet joint osteoarthritis. There is mild bilateral neural foraminal stenosis. There is mild central canal stenosis. IMPRESSION: 1. Moderate cervical spondylosis. 2. Anterior fusion procedures from C3 to C6. Reviewed, dictated and finalized at location E. 'S ADVISER
--- NOTE | ~2025-05-21 | MR_ITS ---
EXAMINATION: MR brain/brain stem wo/w con DATE: 05/21/2025 08:58 INDICATION: Limb paralysis. TECHNIQUE: Magnetic resonance imaging (MRI) of the brain and brainstem was performed without and with 17 mL MultiHance intravenous contrast. COMPARISON: Head CT 05/21/2025 FINDINGS: There are scattered areas of nonspecific increased T2-weighted signal intensity in the cerebral white matter and fransico. There is an old infarct in left parietal lobe. There is no intracranial hemorrhage, acute infarction, or abnormal intracranial mass lesion. The ventricles are normal in size. There are likely changes of ocular lens replacement surgeries. There is mucosal thickening in the paranasal sinuses. There are trace bilateral mastoid effusions. IMPRESSION: 1. 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 2. Moderate nonspecific cerebral white matter disease and pontine disease, which likely represents chronic small vessel ischemic disease. Reviewed, dictated and finalized at location E. . DIRECTOR PRODUCT MANAGEMENT IMPRESSION: 1. 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 2. Moderate nonspecific cerebral white matter disease and pontine disease, whic h likely represents chronic small vessel ischemic disease.
--- NOTE | ~2025-05-21 | CT_ITS ---
CT HEAD CTA NECK, CTA HEAD Clinical History: Limb Paralysis Comparison: None TECHNIQUE: Unenhanced axial images skull base to vertex Coronal, sagittal reformats Helical images thoracic inlet to vertex IV contrast information not listed in PACS Coronal, sagittal reformats. Multiplanar MIPS CT images acquired with automatic exposure control for dose reduction DLP: 2047 mGy-cm Findings: CT HEAD Age-related atrophy. White matter changes from chronic microvascular ischemic disease. Sulci, ventricles: Unremarkable. No intracerebral hemorrhage. No evidence acute territorial infarct. No mass effect, midline shift. Bony calvarium intact. Visualized paranasal sinuses: Clear. Mastoid air cells: Clear. No abnormal foci of contrast enhancement. Patent dural venous sinuses. CTA NECK NASCET Criteria utilized Aortic arch: No aneurysm or dissection. Atherosclerotic disease. Great vessel origins: No stenosis. CCAs: No dissection. No stenosis. Cervical ICAs: Bulb calcifications but no stenosis greater than 50%. No dissection. Vertebral Arteries: Left side ostial stenosis. Left side dominant. Lung Apices: Clear. Thyroid: Small cystic nodule right lobe. Nodes: No enlarged nodes. Bones: No acute bony abnormality. CTA HEAD: Aneurysms: None. Intracranial ICAs: Patent, unremarkable. ACAs and their distal branches: Patent, unremarkable. A-Comm: Identified. Patent, unremarkable. MCAs and their distal branches: Patent, unremarkable. Basilar artery: Patent, unremarkable. field laboratory operator and their distal branches: Patent, unremarkable. P-Comms: Neither side present.. IMPRESSION: CT HEAD: 1. No acute intracranial findings. CTA NECK: 1. No ICA stenosis or other acute arterial abnormality. CTA HEAD: 1. No large vessel arterial occlusive disease or other acute findings. 2. No aneurysms. Reviewed, dictated and finalized at location R. STIVE TECHNOLOGY SPECIALIST
[2025-05-21 08:06] LABS: Estimated Glomerular Filt Rate 45
== END 2025-05-21 07:27 | disposition home or self-care (01) ==
PROVIDERS: PCP Family Medicine; Visit Provider Family Medicine
DX: R29.818 Other symptoms and signs involving the nervous system (principal); M48.02 Spinal stenosis, cervical region; M43.02 Spondylolysis, cervical region; G93.89 Other specified disorders of brain; I25.2 Old myocardial infarction; R90.82 White matter disease, unspecified; Z98.1 Arthrodesis status
CPT/HCPCS: 70496; 70498; 70553; 72141; A9577; Q9967

== ENCOUNTER 2025-05-27 10:37 | Outpatient (CLI) | payer MEDICARE, SELFPAY ==
--- NOTE | ~2025-05-27 | MR_ITS ---
EXAMINATION: [id number] DATE: 05/27/2025 11:41 INDICATION: Right knee pain. TECHNIQUE: Magnetic resonance imaging (MRI) of the right knee was performed without intravenous contrast. Sequences included axial PD-weighted FS FSE, coronal PD-weighted FSE and PD-weighted FS FSE, sagittal PD-weighted FSE, and sagittal T2-weighted FS FSE. COMPARISON: Right knee radiographs 05/06/2025 FINDINGS: Medial compartment: There is an undersurface horizontal tear of posterior horn of medial meniscus. There is deep partial-thickness cartilage loss of femoral condyle involving the central articular surface. There is shallow partial-thickness cartilage loss of femoral condyle. Osteophytes are noted. Lateral compartment: The lateral meniscus is normal. There is shallow partial-thickness cartilage loss of tibial condyle. There is partial-thickness cartilage loss of femoral condyle, deep at the central articular surface. Osteophytes are noted. Patellofemoral compartment: There is full-thickness cartilage loss of patellar lateral facet and median ridge with moderate subchondral edema-like marrow signal intensity. There is deep partial-thickness cartilage loss of patellar medial facet. There is full- thickness cartilage loss of lateral and central trochlea and partial-thickness cartilage loss of medial trochlea. Osteophytes are noted. Ligaments and tendons: There is thickening and increased signal involving anterior cruciate ligament, consistent with mucoid degeneration. Posterior cruciate ligament is normal. There are changes of prior sprain of medial collateral ligament characterized by increased signal intensity proximally. There are changes of prior sprain of lateral collateral ligament characterized by thickening and increased signal intensity proximally. There is mild patellar tendinopathy. Fluid: There is a moderate-sized knee joint effusion. There is moderate prepatellar and superficial infrapatellar bursitis. IMPRESSION: 1. Severe chondrosis of patellofemoral compartment and moderate chondrosis of medial and lateral compartments. 2. Tear of medial meniscus. 3. Moderate-sized knee joint effusion. Reviewed, dictated and finalized at location E. [facility] CHEMIST IMPRESSION: 1. Severe chondrosis of patellofemoral compartment and moderate chondrosis of m edial and lateral compartments. 2. Tear of medial meniscus. 3. Moderate-sized knee joint effusion.
--- OUTSIDE RECORDS SUMMARY | 2025-05-27 10:40 | XMS_ITS | Patient Health Record ---
Author Organization [facility] dicine Address [address] [place] [phone] Care Team Providers Care Dental Insurance Biller Name Role Phone Dr. Cynthia Casas Primary Care Provider [phone] Lora Meyer Unavailable [phone] Migration, Provider Unavailable Unavailable Allergies No Known Allergies Results Component Value Reference Range Flag Notes XR KNEE RT 3 VIEW Reviewed date:05/09/2025 05:54:19 PM Interpretation: Performing Lab: Notes/Report: Covid DNA Alere Reviewed date:03/03/2025 04:00:16 PM Interpretation:Positive Performing Lab: Notes/Report: Positive Influenza DNA A/B Alere Reviewed date:03/03/2025 04:00:39 PM Interpretation:Negative Performing Lab: Notes/Report: Negative Urine Culture Reviewed date:02/02/2025 08:27:53 AM Interpretation: Performing Lab: Notes/Report: Test Performed by: [address] [address] Gate Cutter: Philip Manley DO Report Forwarded By: [address] [place] [id number] C Urine See Below Final No growth at 2 days. Urinalysis with Microscopic Reviewed date:02/02/2025 08:43:36 AM Interpretation: Performing Lab: Notes/Report: Test Performed by: [address] [address] Gate Cutter: Philip Manley DO Report Forwarded By: [address] [place] [id number] UA All Small Particles 3241 UA Color [...] Interpretation: Performing Lab: Notes/Report: Test Performed by: [place] [id number] Gate Cutter: Philip Manley DO Report Forwarded By: [address] [place] [id number] C Urine See Below Final 20,000 cfu/ml Mixed Ny (multiple species present) No sensitivity performed. Troponin-I {cardiac marker} Reviewed date:11/10/2024 08:40:35 AM Interpretation: Performing Lab: Notes/Report: B-Type Natriuretic Peptide Reviewed date:11/10/2024 08:41:53 AM Interpretation: Performing Lab: Notes/Report: CBC w Auto Diff Reviewed date:11/09/2024 04:00:42 PM Interpretation: Performing Lab: Notes/Report: Comprehensive Metabolic Pane l Reviewed date:11/10/2024 08:39:58 AM Interpretation: Performing Lab: Notes/Report: Lactate (POCT) Reviewed date:11/09/2024 04:00:11 PM Interpretation: Performing Lab: Notes/Report: CT Scan : Chest without cont rast Reviewed date:11/09/2024 03:59:42 PM Interpretation:Abnormal Performing Lab: Notes/Report: Abnormal Pathology Tissue Request Reviewed date:02/27/2025 09:32:11 AM Interpretation: Performing Lab: Notes/Report: Test Performed by: [address] [address] Gate Cutter: Philip Manley DO Tissue Request See Below FINAL DIAGNOSIS Skin, anterior nose, biopsy: - Actinic keratosis, see comments. - Negative for malignancy. [facility], [address] [place] [address], [place] [address] Electronically Signed: 02/24/2025 Jameel Herman MD COMMENT [...] reviewed by: TL 02/22/2025 8:58:05 AM CDT MRI : Brain with and without contrast Reviewed date:05/23/2025 10:10:08 AM Interpretation: Performing Lab: Notes/Report: MRI : Cervical without Contr ast Reviewed date:05/23/2025 10:10:19 AM Interpretation: Performing Lab: Notes/Report: CTA HEAD+NECK Reviewed date:05/23/2025 10:10:14 AM Interpretation: Performing Lab: Notes/Report: T4 Free Reviewed date:06/06/2024 12:00:00 AM Interpretation: Performing Lab: Notes/Report: T4 Free 0.80 ng/dL Vit B3 Niacin and Metabolite s Reviewed date:06/06/2024 12:00:00 AM Interpretation: Performing Lab: Notes/Report: Misc Lab: Result Misc Reordered Lactate Dehydrogenase Reviewed date:06/06/2024 12:00:00 AM Interpretation: Performing Lab: Notes/Report: LDH 120 unit/L INACTIVE Morphology Reviewed date:06/06/2024 12:00:00 AM Interpretation: Performing Lab: Notes/Report: Anisocyte 1+ Hemoglobin A1c {Glycosylated } Reviewed date:06/06/2024 12:00:00 AM Interpretation: Performing Lab: Notes/Report: eAvg Glucose 183 mg/dL Hemoglobin A1c 8.0 % Folate Level Reviewed date:06/06/2024 12:00:00 AM Interpretation: Performing Lab: Notes/Report: Folate Lvl 16.2 ng/mL Erythrocyte Sedimentation Ra te Reviewed date:06/06/2024 12:00:00 AM Interpretation: Performing Lab: Notes/Report: ESR, Westergren 3 mm/hr Comprehensive Metabolic Pane l Reviewed date:06/06/2024 12:00:00 [...] Total 7.1 g/dL Sodium Lvl 138 mmol/L CBC w/ Diff Reviewed date:06/06/2024 12:00:00 AM Interpretation: Performing Lab: Notes/Report: Baso Absolute 0.1 x10*3/mcL Basophil Auto 0.9 % Eos Absolute 0.8 x10*3/mcL Eosinophil Auto 14.4 % Hct 47.6 % Hgb 15.9 g/dL Lymph Absolute 1.6 x10*3/mcL Lymph Auto 28.2 % MCH 30.7 pg MCHC 33.3 g/dL MCV 92.0 fL Wallace Absolute 0.4 x10*3/mcL Wallace Auto 8.0 % MPV 10.3 fL Neutro Absolute 2.7 x10*3/mcL Neutro Auto 48.5 % Platelets 211 K/mcL RBC 5.17 x10*6/mcL RDW 16.3 % WBC 5.6 K/mcL Miscellaneous Lab Test 2 Reviewed date:06/01/2024 12:00:00 AM Interpretation: Performing Lab: Notes/Report: Misc Lab: Result Misc Reordered PSA Annual Screening Reviewed date:06/06/2024 12:00:00 AM Interpretation: Performing Lab: Notes/Report: PSA Total 5.42 ng/mL PTHI No Calcium Reviewed date:06/06/2024 12:00:00 AM Interpretation: Performing Lab: Notes/Report: Parathyroid Hormone, Intact 30.4 pg/mL Urinalysis with Microscopic Reviewed date:02/02/2025 08:59:47 AM Interpretation: Performing Lab: Notes/Report: Test Performed by: [address] [address] Gate Cutter: Pih[place] Manley DO Report Forwarded By: [address] [place] [id number] UA All Small Particles 1348 UA Color [...] Epithelial Cells <1 0-8 /HPF UA Yeast [place] Trace Negative /HPF A UA Mucous Negative Negative /LPF UA WBC Clumps Few Negative A Urine Culture Reviewed date:02/02/2025 08:59:47 AM Interpretation: Performing Lab: Notes/Report: Test Performed by: [address] [address] Gate Cutter: Philip Manley DO Report Forwarded By: [address] [place] [id number] C Urine See Below Final No growth at 2 days. Testosterone Total Reviewed date:06/06/2024 12:00:00 AM Interpretation: Performing Lab: Notes/Report: TESTOSTERONE TOTAL 394.8 ng/dL Thyroid Peroxidase {TPO) Ab- [facility] Reviewed date:06/06/2024 12:00:00 AM Interpretation: Performing Lab: Notes/Report: TPO (Thyroid Peroxidase) See Below Thyroid Stimulating Hormone Reviewed date:06/06/2024 12:00:00 AM Interpretation: Performing Lab: Notes/Report: TSH 1.38 mcIU/mL Vitamin B1 {Thiamine), Whole Blood-[facility] Reviewed date:06/06/2024 [...] Notes/Report: Vitamin D 25 OH 46 ng/mL Lipid Panel {Chol, Trig, HDL , LDL} [...] Ratio 36.3 mcg/mg Microalbumin Ur 60.4 mg/L Hemoglobin A1c {Glycosylated } Reviewed date:01/05/2025 09:30:03 AM Interpretation: Performing Lab: Notes/Report: Test Performed by: [place] [address] Gate Cutter: Philip Manley DO Hemoglobin A1c 7.5 <=6.4 % H Hemoglobin A1C < 5.7% = Normal 5.7-6.4% = Increased risk for future diabetes >=6.5% = Diabetes eAvg Glucose 169 <=117 mg/dL H eAG Reference Range <117 mg/dL = Normal 117-137 mg/dL = Increased Risk For Future Diabetes >137 mg/dL = Diabetes Urine Culture Reviewed date:09/23/2024 12:27:49 PM Interpretation: Performing Lab: Notes/Report: Test Performed by: [place] [address] Gate Cutter: Philip Manley DO C Urine See Below Final No growth at 2 days. Urinalysis with Microscopic Reviewed date:09/23/2024 12:27:49 PM Interpretation: Performing Lab: Notes/Report: Test Performed by: [place] [id number] Gate Cutter: Philip Manley DO UA All Small [...] Negative /HPF UA Mucous Negative Negative /LPF Echocardiogram Reviewed date:08/23/2024 01:32:21 PM Interpretation:EF 40-45% Performing Lab: Notes/Report: EF 40-45% Reason For Referral No Information Medications Medication SIG (Take, Route, Frequency, Duration) Notes Start Date End Date Status Atorvastatin Calcium 40 MG Tablet 1 Oral at bed time; Duration: 90 days 04/05/2024 Active NovoLOG FlexPen 100 UNIT/ML Solution Pen-injector give 6 units Subcutaneous with each meal Active Aspirin 81 81 MG Tablet Delayed Release 1 tablet Orally Once a day Active Clopidogrel Bisulfate 75 MG Tablet 1 tablet Orally Once a day; Duration: 90 days Active Vitamin B12 1000 MCG Tablet Extended Release 1 tablet Orally Once a day Active Glimepiride 4 MG Tablet 1 Oral twice a d ay; Duration: 90 days 04/29/2024 Active Vitamin D3 50 MCG (2000 UT) Tablet 1 tablet Orally Once a day A ctive Tylenol 325 MG Capsule 2 capsules Orally every 6 hrs As needed 11/09/2024 Active Finasteride 5 MG Tablet 1 tablet Orally Once a day; Duration: 30 day(s) 07/22/2024 Active [employer]s [employer] w/Device Kit MISCELLANEOUS; Duration: 0 05/09/2024 A ctive Tamsulosin HCl 0.4 MG Capsule 2 capsules Oral at bed time; Duration: 90 days 05/26/2024 Active Magnesium Oxide 400 MG Tablet 2 tabs qam and 1 tab qpm Orally Active HYDROcodone-Acetaminophen 5-325 MG Tablet Take 1 to 1.5 tabs twice a day as needed Oral 03/17/2025 Active metFORMIN HCl 500 MG Tablet 2 Oral two times a day; Duration: 90 days 02/27/2023 Active Carvedilol 12.5 MG Tablet 1 Oral two dutch es a day; Duration: 90 days 03/08/2024 Active FreeStyle Test - Strip use 1 strip to ch connor blood sugar daily; Duration: 100 days 03/08/2024 Active Pantoprazole Sodium 40 MG Tablet Delayed Release 1 tablet 1/2 to 1 hour before morning meal Oral every day; Duration: 90 days 02/23/2024 Active ZyrTEC 10 MG Tablet Chewable 1 tablet Orally Once a day A ctive Entresto 24-26 MG Tablet 1 tablet Orally Twice a day; Duration: 90 days Active Immunizations Vaccine Route Administration Date Status Comme nts RSV-MAb (Respiratory syncytial virus immune globulin) IM Intramuscular 06/16/2023 Administered ,sourcename : New immunization record ,immstatus : Complete Pneumococcal conjugate PCV 13 Unknown 01/01/2017 Administered ,sourcename : Historical information -from other provider Source VFC Code: : Influenza, high-dose seasonal, [...] N ew immunization record ,immstatus : Complete Influenza, high dose seasonal IM Intramuscular 05/22/2025 Administered [employer] Covid-19 Vaccine 1st dose IM Intramuscular 04/29/2024 Administered ,sourcename : N ew immunization record ,immstatus : Complete Moderna Covid-19 Vaccine 1st dose Unknown 08/04/2020 Administered [facility] ,sourcename : Historical information -from other provider Source VFC Code: : Moderna Covid-19 Vaccine 1st dose Unknown 09/01/2020 Administered [facility] ,sourcename : Historical information -from other provider Source VFC Code: : Moderna Covid-19 Vaccine 1st dose Unknown 05/10/2021 Administered Mickey Gillespie ,sourcename : Historical information -from other provider Source VFC Code: : Social History Social History Additional Details Category Social Info Options Details Migrated Social History Migrated Social History Marital status: , Employment:Retired , Tobacco use: Quit in october 1973 , Alcohol use: None Problems Problem Type SNOMED Code ICD Code Onset Dates Problem Status W/U Status Risk Notes Problem Hemangioma of skin and subcutaneous tissue (320082860) Hemangioma of skin and subcutaneous tissue (228.01) Problem resolved confirmed Problem Disorder of adrenal gland (20023922) Other specified disorders of adrenal glands (255.8) Problem resolved confirmed Problem Hyperlipidemia (58521338) Other and unspecified hyperlipidemia (272.4) Problem resolved confirmed Problem Coronary atherosclerosis (474577405) Coronary atherosclerosis (414.0) Problem resolved confirmed Problem External hemorrhoids without complication (98179650) External hemorrhoids without mention of complication (455.3) Problem resolved confirmed Problem Orthostatic hypotension (88215126) Orthostatic hypotension (458.0) Problem resolved confirmed Problem Acute sinusitis (disorder) (68444927) Other acute sinusitis (461.8) Problem resolved confirmed Problem Acute upper respiratory infection (57908348) Acute upper respiratory infections of unspecified site (465.9) Problem resolved confirmed Problem Polyp of nasal cavity (660317285) Polyp of nasal cavity (471.0) Problem resolved confirmed Problem Diaphragmatic hernia (27747884) Diaphragmatic hernia without mention of obstruction or gangrene (553.3) Problem resolved confirmed Problem Benign prostatic hypertrophy (318478672) Hypertrophy (benign) of prostate (600.0) Problem resolved confirmed Problem Acute prostatitis (18025578) Acute prostatitis (601.0) 018 Problem resolved confirmed Problem Disuse muscle atrophy (504201037) Muscular wasting and disuse atrophy, not elsewhere classified (728.2) Problem resolved confirmed Problem 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) Osteoarthrosis and allied disorders (715) Problem resolved confirmed Problem Localized, primary osteoarthritis of the hand (311852260) Primary localized osteoarthrosis, hand (715.14) Problem resolved confirmed Problem Displacement of lumbar intervertebral disc without myelopathy (91010190) Displacement of lumbar intervertebral disc without myelopathy (722.10) Problem resolved confirmed Problem Pain in limb (32212308) Pain in soft tissues of limb (729.5) Problem resolved confirmed Problem Dizziness and giddiness (495819583) Dizziness and giddiness (780.4) Problem resolved confirmed Problem Malaise and fatigue (448911144) Other malaise and fatigue (780.79) Problem resolved confirmed Problem Disturbance of skin sensation (433417341) Disturbance of skin sensation (782.0) Problem resolved confirmed Problem Tachycardia (6079125) Unspecified tachycardia (785.0) Problem resolved confirmed Problem Chest pain (42982552) Chest pain, unspecified (786.50) Problem resolved confirmed Problem Chest pain (25438005) Chest pain, other (786.59) Problem resolved confirmed Problem Abnormal chest sounds (29602508526979) Abnormal chest sounds (786.7) Problem resolved confirmed Problem Nausea and vomiting (50469942) Nausea with vomiting (787.01) Problem resolved confirmed Problem Dysuria (64292335) Dysuria (788.1) Problem resolved confirmed Problem Retention of urine (498977602) Other specified retention of urine (788.29) Problem resolved confirmed Problem Urgent desire to urinate (50804763) Urgency of urination (788.63) Problem resolved confirmed Problem Urinary hesitancy (5649284) Urinary hesitancy (788.64) Problem resolved confirmed Problem Laboratory test result abnormal (631657405) Other nonspecific abnormal serum enzyme levels (790.5) Problem resolved confirmed Problem Blood chemistry abnormal (965618056) Other abnormal blood chemistry (790.6) Problem resolved confirmed Problem Abnormal reflex (12669919) Abnormal reflex (796.1) Problem resolved confirmed Problem Fall on same level from slipping, tripping or stumbling (335156073) Fall from other slipping, tripping, or stumbling (E885.9) Problem resolved confirmed Problem Screening for malignant neoplasm of prostate (827706211) Special screening for malignant neoplasm of prostate (V76.44) Problem resolved confirmed Problem Candidiasis of mouth (40399285) Candidal stomatitis (B37.0) Problem resolved confirmed Problem Hemangioma of skin and subcutaneous tissue (853796951) Hemangioma of skin and subcutaneous tissue (D18.01) Problem resolved confirmed Problem Vitamin B>12< deficiency anaemia (87288192) Vitamin B12 deficiency anemia, unspecified (D51.9) Active confirmed Problem Anemia (458673658) Anemia, unspecified (D64.9) Active confirmed Problem Leukocytosis (982878404) Elevated white blood cell count, unspecified (D72.829) Problem resolved confirmed Problem Diabetic peripheral neuropathy associated with type 2 diabetes mellitus (8476613518319) Type 2 diabetes mellitus with diabetic neuropathy, unspecified (E11.40) Active confirmed Problem Disorder of adrenal gland (11858103) Other specified disorders of adrenal gland (E27.8) Problem resolved confirmed Problem Disorder of adrenal gland (85066530) Disorder of adrenal gland, unspecified (E27.9) Problem resolved confirmed Problem Vitamin B deficiency (44061756) Vitamin B deficiency, unspecified (E53.9) Active confirmed Problem Vitamin D deficiency (81274221) Vitamin D deficiency, unspecified (E55.9) 024 Active confirmed Problem Mixed hyperlipidemia (708072946) Mixed hyperlipidemia (E78.2) Active confirmed Problem Anxiety disorder (625354067) Anxiety disorder, unspecified (F41.9) 023 Active confirmed Problem Essential hypertension (99673655) Essential (primary) hypertension (I10) Active confirmed Problem Acute non-ST segment elevation myocardial infarction (924911308) Non-ST elevation (NSTEMI) myocardial infarction (I21.4) Active confirmed Problem Cardiomyopathy (84636759) Cardiomyopathy, unspecified (I42.9) Active confirmed Problem Left bundle branch block (02414431) Left bundle-branch block, unspecified (I44.7) Active confirmed Problem Chronic systolic heart failure (773635108) Chronic systolic (congestive) heart failure (I50.22) Active confirmed Problem Orthostatic hypotension (06293439) Orthostatic hypotension (I95.1) Problem resolved confirmed Problem Hypotension (92975670) Hypotension, unspecified (I95.9) Active confirmed Problem Acute pansinusitis (0655880) Acute pansinusitis, unspecified (J01.40) 017 Problem resolved confirmed Problem Acute sinusitis (17168251) Acute sinusitis, unspecified (J01.90) Problem resolved confirmed Problem Pneumonia (722058945) Pneumonia, unspecified organism (J18.9) Problem resolved confirmed Problem Acute bronchitis (95237898) Acute bronchitis, unspecified (J20.9) 023 Problem resolved confirmed Problem Polyp of nasal cavity (511949354) Polyp of nasal cavity (J33.0) Problem resolved confirmed Problem Gastro-esophageal reflux disease without esophagitis (296699550) Gastro-esophageal reflux disease without esophagitis (K21.9) Active confirmed Problem Hernia of anterior abdominal wall (disorder) (863306808) Ventral hernia without obstruction or gangrene (K43.9) Active confirmed Problem Contact dermatitis (00133944) Unspecified contact dermatitis, unspecified cause (L25.9) Problem resolved confirmed Problem Inflamed seborrheic keratosis (684492188) Inflamed seborrheic keratosis (L82.0) Active confirmed Problem Chondrocalcinosis (985599888) Other chondrocalcinosis , unspecified site (M11.20) Active confirmed Problem Osteoarthritis of knee (392684901) Osteoarthritis of knee, unspecified (M17.9) Active confirmed Problem Localized, primary osteoarthritis of the hand (804454678) Primary osteoarthritis, unspecified hand (M19.049) 018 Problem resolved confirmed Problem Pain of right shoulder region (finding) (4981907399) Pain in right shoulder (M25.511) 018 Problem resolved confirmed Problem Pain of left knee joint (finding) (262744863328264) Pain in left knee (M25.562) 024 Active confirmed Problem Solitary sacroiliitis (686326282) Sacroiliitis, not elsewhere classified (M46.1) 024 Active confirmed Problem Spinal stenosis in cervical region (46786042) Spinal stenosis, cervical region (M48.02) 024 Active confirmed Problem Degeneration of cervical intervertebral disc (25991499) Other cervical disc degeneration, unspecified cervical region (M50.30) 024 Active confirmed Problem Cervical disc disorder (337586895) Cervical disc disorder, unspecified, unspecified cervical region (M50.90) 024 Active confirmed Problem Lumbar radiculopathy (713617777) Radiculopathy, lumbar region (M54.16) 019 Problem resolved confirmed Problem Cervicalgia (52832110) Cervicalgia (M54.2) 024 Active confirmed Problem Low back pain (240716823) Low back pain (M54.5) 018 Active confirmed Problem Muscle atrophy (70499395) Muscle wasting and atrophy, not elsewhere classified, unspecified site (M62.50) 016 Problem resolved confirmed Problem Trochanteric bursitis of left hip (295793091027589) Trochanteric bursitis, left hip (M70.62) 022 Problem resolved confirmed Problem Enthesopathy of lower limb (509761107) Other specified enthesopathies of left lower limb, excluding foot (M76.892) 023 Problem resolved confirmed Problem Pain in limb (55086074) Pain in left finger(s) (M79.645) 018 Problem resolved confirmed Problem Disorder of bone (78137542) Disorder of bone, unspecified (M89.9) 023 Active confirmed Problem Acute renal failure syndrome (98657527) Acute kidney failure, unspecified (N17.9) Problem resolved confirmed Problem Cough (49187172) Cough (R05) Problem resolved confirmed Problem Shortness of breath (282466872) Shortness of breath (R06.02) Problem resolved confirmed Problem Chest pain (78219056) Other chest pain (R07.89) Problem resolved confirmed Problem Chest pain (40507800) Chest pain, unspecified (R07.9) Active confirmed Problem Other specified symptoms and signs involving the circulatory and respiratory systems (R09.89) Problem resolved confirmed Problem Nausea and vomiting (69852743) Nausea with vomiting, unspecified (R11.2) Problem resolved confirmed Problem Incontinence of feces (04073969) Full incontinence of feces (R15.9) Active confirmed Problem Paresthesia (finding) (98630975) Paresthesia of skin (R20.2) Problem resolved confirmed Problem Abnormal gait (37899089) Unspecified abnormalities of gait and mobility (R26.9) Active confirmed Problem Abnormal reflex (02143009) Abnormal reflex (R29.2) Problem resolved confirmed Problem Dysuria (22085304) Dysuria (R30.0) Problem resolved confirmed Problem Retention of urine (678284013) Other retention of urine (R33.8) Problem resolved confirmed Problem Hesitancy of micturition (3037646) Hesitancy of micturition (R39.11) Problem resolved confirmed Problem Altered mental status (019954640) Altered mental status, unspecified (R41.82) Active confirmed Problem Dizziness and giddiness (329251931) Dizziness and giddiness (R42) Problem resolved confirmed Problem Fever (782009762) Fever, unspecified (R50.9) Problem resolved confirmed Problem Early satiety (171624121) Early satiety (R68.81) Active confirmed Problem Laboratory test result abnormal (711916566) Abnormal levels of other serum enzymes (R74.8) 018 Problem resolved confirmed Problem Blood chemistry abnormal (367285220) Other specified abnormal findings of blood chemistry (R79.89) 022 Problem resolved confirmed Problem Lower back injury (442049842) Unspecified injury of lower back, initial encounter (S39.92XA) 023 Problem resolved confirmed Problem Fall on same level from slipping, tripping or stumbling (313728646) Fall on same level from slipping, tripping and stumbling without subsequent striking against object, initial encounter (W01.0XXA) 019 Problem resolved confirmed Problem Presence of orthopedic joint implant (940793304) Presence of other bone and tendon implants (Z96.7) 023 Active confirmed Problem Fall (8602651) Unspecified fall , initial encounter (W19.XXXA) 023 Active confirmed Problem Spinal stenosis of lumbar region (70456305) Spinal stenosis, lumbar region without neurogenic claudication (M48.061) 024 Active confirmed Problem Traumatic AND/OR non-traumatic injury (512393329) Other injury of unspecified body region, initial encounter (T14.8XXA) 023 Active confirmed Problem Pain due to othe r internal prosthetic devices, implants and grafts, initial encounter (T85.848A) 022 Active confirmed Problem Encounter for screening for COVID-19 (Z11.52) 022 Problem resolved confirmed Problem Exposure to acute respiratory syndrome coronavirus 2 (798904505) Contact with and (suspected) exposure to COVID-19 (Z20.822) 022 Problem resolved confirmed Problem Acute cough (392325019621424480 ) Acute cough (R05.1) Problem resolved confirmed Problem Cough (finding) (99408430) Cough, unspecified (R05.9) 022 Problem resolved confirmed Problem Body mass index 20-24 - normal (208410519) Body mass index (BMI) 23.0-23.9, adult (Z68.23) 024 Active confirmed Problem Abnormal gait (03459137) Abnormal gait (R26.9) Active confirmed Problem Osteoarthritis of right knee joint (999037646264037) Osteoarthritis of right knee, unspecified osteoarthritis type (M17.11) Active confirmed Problem Transient ischemic attack (636590401) TIA (transient ischemic attack) (G45.9) Active confirmed Vital Signs Heart Rate 87 /min 05/12/2025 Temperature 97.9 degrees Fahrenheit 05/12/2025 Respiratory Rate 18 /min 05/12/2025 Height-cm 177.8 cm 05/12/2025 Oximetry 97 % 05/12/2025 Blood pressure diastolic 60 mm Hg 05/12/2025 Weight-kg 83.19 kg 05/12/2025 Height 70.00 in 05/12/2025 Blood pressure systolic 106 mm Hg 05/12/2025 Weight 183.4 lbs 05/12/2025 BMI 26.31 kg/m2 05/12/2025 Encounters Encounter Location Date Provider Diagnosis [address] [id number] 05/30/2024 Dr. Cynthia Casas Other cervical disc [...] screening for malignant neoplasm of prostate Z12.[address] [address] 08/12/2024 Dr. Cynthia Casas Acute prostatitis N41.0 ; Type 2 diabetes mellitus with diabetic neuropathy, unspecified E11.40 ; Cardiomyopathy, unspecified I42.9 and Pancreatic cyst K86.[address] [address] 11/09/2024 Dr. Cynthia Casas Shortness of breath R06.02 ; Acute hypotension I95.9 ; Weakness R53.1 ; Chronic systolic (congestive) heart failure I50.22 ; Cardiomyopathy, unspecified I42.9 and Pneumonia due to infectious organism, unspecified laterality, unspecified part of lung J18.[address] [address] 02/20/2025 Dr. Cynthia Casas Neoplasm of uncertain behavior of skin D48.5 ; Osteoarthritis of left index finger M19.042 ; Osteoarthritis of right index finger M19.041 and Paresthesia R20.[address] [address] 03/03/2025 Dr. Cynthia Casas Upper respiratory infection, acute J06.9 ; COVID-19 U07.1 and Acute non-recurrent sinusitis, unspecified location J01.[address] [address] 05/12/2025 Dr. Cynthia Casas Pain, joint, knee, right M25.561 ; Abnormal gait R26.9 ; Limb paralysis, transient R29.818 ; Osteoarthritis of right knee, unspecified osteoarthritis type M17.11 and Spinal stenosis, cervical region M48.[address] [address] 05/22/2025 Dr. Cynthia Casas Encounter for immunization Z23 [address] [address] 06/04/2024 Provider Migration [address] [address] 06/05/2024 Provider Migration [address] [address] 06/24/2024 Dr. Cynthia Casas [address] [address] 06/24/2024 Dr. Cynthia Casas [address] [address] 07/01/2024 Dr. Cynthia Casas [address] [address] 07/04/2024 Dr. Cynthia Casas Urinary tract infection without hematuria, site unspecified N39.[address] [address] 07/04/2024 Dr. Cynthia Casas [address] [address] 07/05/2024 Dr. Cynthia Casas Abnormal urine finding R82.90 [facility] [address] [place] [address] 07/22/2024 Dr. Cynthia Casas [facility] [address] [place] [address] 08/10/2024 Dr. Cynthia Casas Dysuria R30.0 [facility] [address] [place] [address] 08/12/2024 Dr. Cynthia Casas [facility] [address] [place] [address] 08/16/2024 Dr. Cynthia Casas Abnormal urine R82.90 and Acute UTI N39.[address] [address] 08/19/2024 Dr. Cynthia Casas [address] [address] 08/26/2024 Dr. Cynthia Casas [address] [address] 08/26/2024 Dr. Cynthia Casas [address] [address] 09/01/2024 Dr. Cynthia Casas [address] [address] 09/01/2024 Dr. Cynthia Casas Candidiasis B37.[address] [address] 09/03/2024 Lora Meyer Acute prostatitis N41.[address] [address] 09/16/2024 Dr. Cynthia Casas [address] [address] 09/16/2024 Dr. Cynthia Casas [address] [address] 09/21/2024 Dr. Cynthia Casas Urinary tract infection without hematuria, site unspecified N39.0 and Candidiasis B37.[address] [address] 09/23/2024 Dr. Cynthia Casas [address] [address] 10/14/2024 Dr. Cynthia Casas [facility] [address] [place] [address] 10/24/2024 Dr. Cynthia Casas Type 2 diabetes mellitus with diabetic neuropathy, unspecified E11.40 [facility] [address] [place] [address] 10/28/2024 Dr. Cynthia Casas [facility] [address] [place] [address] 11/02/2024 Dr. Cynthia Casas [facility] [address] [place] [address] 11/10/2024 Dr. Cynthia Casas [facility] [address] [place] [address] 11/14/2024 Dr. Cynthia Casas [facility] [address] [place] [address] 01/03/2025 Dr. Cynthia Casas [facility] [address] [place] [address] 01/13/2025 Dr. Cynthia Casas [facility] [address] [place] [address] 02/10/2025 Dr. Cynthia Casas [facility] [address] [place] [address] 02/23/2025 Dr. Cynthia Casas [facility] [address] [place] [address] 03/10/2025 Dr. Cynthia Casas [place] [address] [place] [address] 03/17/2025 Dr. Cynthia Casas [facility] [address] [place] [address] 03/24/2025 Dr. Cynthia Casas [facility] [address] [place] [address] 03/24/2025 Dr. Cynthia Casas [facility] [address] [place] [address] 03/30/2025 Dr. Marie [facility] [address] [place] [address] 05/03/2025 Dr. Cynthia Casas Right knee pain, [...] - N39.0) 09/21/2024 Candidiasis (ICD-10 - B37.9) 05/22/2025 Encounter for immunization (ICD-10 - Z23) 05/12/2025 Abnormal gait (ICD-10 - R26.9) 05/12/2025 Pain, joint, knee, right (ICD-10 - M25.561) 11/09/2024 Shortness of breath (ICD-10 - R06.02) [...] Perform blood work to be completed at [place] for faster results. This will provide additional [...] Atrial Fibrillation - Continue Eliquis as prescribed. 02/20/2025 Osteoarthritis of left index finger (ICD-10 - M19.042) Most likely this is not related to his neck in terms of the paresthesias. There is mechanical deformity consistent with osteoarthritis. 03/03/2025 COVID-19 (ICD-10 - U07.1) 03/03/2025 Upper respiratory infection, acute (ICD-10 - J06.9) 11/09/2024 Acute hypotension (ICD-10 - I95.9) push fluids, likely from illness 08/10/2024 Dysuria (ICD-10 - R30.0) 07/05/2024 Abnormal urine finding (ICD-10 - R82.90) 07/04/2024 Urinary tract infection without hematuria, site unspecified (ICD-10 - N39.0) 02/20/2025 Neoplasm of uncertain behavior of skin [...] be contacted with pathology results when available. 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 There is mechanical deformity consistent with osteoarthritis. 11/09/2024 Weakness (ICD-10 - R53.1) rule out sepsi with bloodwork including lactic acid. 05/12/2025 Limb paralysis, transient (ICD-10 - R29.818) 08/12/2024 Cardiomyopathy, unspecified (ICD-10 - I42.9) 08/12/2024 Pancreatic cyst (ICD-10 - K86.2) 11/09/2024 Chronic systolic (congestive) heart failure (ICD-10 - I50.22) 05/12/2025 Osteoarthritis of right knee, unspecified osteoarthritis type (ICD-10 - M17.11) 02/20/2025 Paresthesia (ICD-10 - R20.2) likely from nerve impingement related to joint swelling and deformity and not from cervical spine stenosis. 11/09/2024 Cardiomyopathy, unspecified (ICD-10 - I42.9) f/u with cardio - worried about CHF possibly contributing, check labs. 05/12/2025 Spinal stenosis, cervical region (ICD-10 - M48.02) 11/09/2024 Pneumonia due to infectious organism, unspecified [...] RTC if not improving or if worsening. 05/12/2025 Other Right knee pain and dysfunction: - Severe right knee pain with functional limitation. Concern for insufficiency fracture, tendinopathy, or severe end-stage osteoarthritis. Differential includes bone bruise, cartilage fragment, or tendon insertion pathology. - Ordered MRI of the right knee (without contrast) at [facility] to evaluate for insufficiency fracture, tendon pathology, or other intra-articular abnormalities. Imaging coordinated for expedited results and direct communication with radiology. - Will not proceed with steroid injection until fracture is ruled out by MRI. - Discussed possible future consideration of knee replacement if indicated by imaging and clinical course, including possibility of block anesthesia to protect heart if needed. - If imaging shows severe end-stage arthritis, will consider referral for knee replacement and discuss anesthesia options. - Diabetes management will be addressed in context of any future steroid injections, with plan to monitor and adjust blood sugar as needed. Transient hand weakness/possible transient ischemic attack (TIA): - Brief episode of right hand weakness with inability to coordinate movement, resolved within 10-15 seconds. Differential includes transient ischemic attack versus cervical radiculopathy due to known cervical spine pathology. - Proposed MRI of the brain and CTA of the cerebral vasculature to evaluate for evidence of prior stroke, vascular narrowing, or other intracranial pathology. MRI of the cervical spine also to be performed to assess for nerve impingement. - Imaging coordinated at [facility] for expedited results and radiology communication. - Rationale for brain/neck imaging includes assessment for mini stroke, risk of full stroke within 30 days, and evaluation for cervical nerve impingement due to prior neck surgery and hardware. - Will review imaging results to guide further management and address stroke risk if vascular narrowing is identified. Plan Of Treatment Pending Test Test Name Order Date MRI : Lower Ext Joint W/O Contrast 05/12 Insurance Providers Payer Name Payer Address Payer Phone Subscriber Number Group Number Insured Name Patient Relationship to Insured Coverage Start Date Coverage End Date NGS Medicare B [address] [place] [address] [id number] HemNubia lux Self - patient is the insured 2 BCBSIL [address] [place] [address] [id number] Nubia Lopez Self - patient is the insured 2 NGS Medicare RHC [address] [place] [address] [id number] Nubia Lopez Self - patient is the insured 2 Medications Administered Medication Instructions Date of Administration Dosage Notes Danika 11/09/2024 1 g Medical (General) History Medical [...] : 1968 Dr Matos - [place] Device Lot#[id number] Ref#[id number] 12/12/2024
--- OUTSIDE RECORDS SUMMARY | 2025-05-27 10:40 | XMS_ITS | Clinical Summary ---
Author Organization [facility] Address [address] [place] [address] Care Team Providers Care Instrument Engineer Name Role Phone Cynthia Casas MD Primary [...] cardiomyopathy 09/04/2017 Coronary artery disease invo lving [place] coronary artery of [place] heart without angina pectoris 01/14/2016 Essential hypertension 01/14/2016 Mixed hyperlipidemia 01/14/2016 SVT (supraventricular tachycardia) 01/14/2016 Type 2 diabetes mellitus without complication Calculus of ureter 08/19/2012 Impotence of organic origin 08/19/2012 Diabetes mellitus 08/19/2012 Notalgia 08/19/2012 Surgical History Surgery Date Site/Laterality Comments ARTHRODESIS Arthrodesis Cervical - (Added by TW Conv) [place] REPAIR FIRST ABDOMINAL WALL HERNIA Ventral Hernia Repair - (Added by TW Conv) [place] CORONARY ARTERY BYPASS 1 CORONARY VENOUS GRAFT [...] on file Legal Sex Male 7:59 AM MACHINE OR MACHINERY MECHANIC Gender Identity Not on file Sexual Orientation Not on file Occupation Industry Job Start Date Job End Date Retired Not on file Not on file Not on file Last Filed Vital Signs Vital Sign Reading Time Taken Comments Blood Pressure 136/86 08/19/2012 9:50 AM MACHINE OR MACHINERY MECHANIC Pulse 70 08/19/2012 9:50 AM MACHINE OR MACHINERY MECHANIC Temperature - - Respiratory Rate - - Oxygen Saturation - - Inhaled Oxygen Concentration - - Weight 76.2 kg (168 lb) 08/10/2023 10:15 AM MACHINE OR MACHINERY MECHANIC Height 179.1 cm (5' 10.5) 08/10/2023 10:[address] Body Mass Index 23.76 08/10/2023 10:15 AM MACHINE OR MACHINERY MECHANIC Plan of Treatment Health Maintenance Due Date [...] Screening Discontinued Medical Devices Implanted Type Area Tape Recorder Mechanic Device Identifier Shelf Expiration Date Model / Serial / Lot Scryer Insertable Chief Contract Officer-10/07/19 23 Implanted:Qty: 1 on 10/06/2022 by Timbo Matos MD Other - see comments N/A: Heart [id number] / [id number] / Procedures Procedure Name Priority Date/Time Associated Diagnosis Comments COLONOSCOPY IMAGES 07/17/2016 from Last 3 Months or Most Recently Relevant to Health Maintenance Results * COLONOSCOPY IMAGES (07/17/2016) Anatomical Region Laterality Modality Other Narrative 07/17/2016 Ordered by an unspecified provider. Historical Provider GI PROCEDURE ORDERABLES F inal Result from Last 3 Months or Most Recently Relevant to Health Maintenance Insurance MEDICARE [facility] MEDICARE [facility] MEDICARE [facility] [place] Care Teams Instrument Engineer Relationship Specialty Start Date End Date Cynthia Casas MD PCP - General Family Medicine 03/02/19
--- OUTSIDE RECORDS SUMMARY | 2025-05-27 10:40 | XMS_ITS | Encounter Summary ---
Author Organization [facility] Address [address] [place] [address] Care Team Providers Care Cargo Surveyor Name Role Phone Cynthia Casas MD Primary Care Provider Grecia Bal [facility]- Unavailable [phone] Encounter Details Date Type Department Care Team (Late st Contact Info) Description 08/24/2017 Abstract [facility] [address] [place] [id number] Travis Nolen MD [address] [place] [address] [place] [address] Social History Tobacco Use Types Packs/Day Years Used Date Smoking Tobacco: Former Cigarettes Q uit: 1974 Alcohol Use Standard Drinks/Week Comments No 0 (1 standard drink = 0.6 oz pur e alcohol) Sex and Gender Information Value Date Recorded Sex Assigned at Male 08/22/2024 3:31 PM MANAGER OF EMPLOYEE RELATIONS Legal Sex Male 11:08 PM CDT Gender Identity Not on file Sexual Orientation Not on file Occupation Industry Job Start Date Job End Date 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
--- OUTSIDE RECORDS SUMMARY | 2025-05-27 10:40 | XMS_ITS | Encounter Summary ---
Author Organization [facility] Address [address] [place] [address] Care Team Providers Care Nail Making Machine Setter Name Role Phone Cynthia Casas MD Primary Care Provider Grecia Bal [facility]- Unavailable [phone] Encounter Details Date Type Department Care Team (Late st Contact Info) Description 12/06/2015 Abstract [facility] AT [facility] [address] [place] [address] Chaz Márquez PA-C [address] [place] [address] Social History Tobacco Use Types Packs/Day Years Used Date Smoking Tobacco: Former Cigarettes Q uit: 1974 Alcohol Use Standard Drinks/Week Comments No 0 (1 standard drink = 0.6 oz pur e alcohol) Sex and Gender Information Value Date Recorded Sex Assigned at Male 08/22/2024 3:31 PM HIGH SCHOOL COACH Legal Sex Male 11:08 PM CDT Gender Identity Not on file Sexual Orientation Not on file Occupation Industry Job Start Date Job End Date 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
--- OUTSIDE RECORDS SUMMARY | 2025-05-27 10:40 | XMS_ITS | Clinical Summary ---
Author Organization [facility] Address [address] [facility] [place] [address] Care Team Providers Care Medical Orderly Name Role Phone Cynthia Casas MD Primary Care Provider [phone] Source Comments [facility],non-owned Affiliates and Associated Physician Practices is amultiple site organization consisting of ambulatory clinics and hospital sitesin [place], [place], [place] and [place]. This disclosure is being madepursuant to the Care Everywhere program and may not contain all information available regarding this patient. Last updated 18.[facility] AddIn Social Allergies Active Allergy Reactions Criticality Noted Date [...] 5 03/27/2020 Coronary artery disease invo lving [place] coronary artery of [place] heart without angina pectoris 01/14/2016 Overview (03/27/2020): [...] on file Legal Sex Male 6:29 AM EDGER LINER Gender Identity Not on file Sexual Orientation [...] DEPRESSION SCREENING 07/06/2024 COVID-19 VACCINE (1 - 2024-2 6 season) 2025 INFLUENZA VACCINE (#1) 2025 HEPATITIS [...] to complete this topic Insurance [address] [address] [facility] [address] [address] [facility] Care Teams Medical Orderly Relationship Specialty Start Date End Date Cynthia Casas MD [address] [place] [address] PCP - General Family Medicine 12/22/18
--- OUTSIDE RECORDS SUMMARY | 2025-05-27 10:40 | XMS_ITS | Clinical Summary ---
Author Organization [facility] Address [address] [place] [address] Care Team Providers Care Cook Apprentice Name Role Phone Cynthia Casas MD Primary Care Provider Grecia Bal ANP-BC Unavailable [phone] Allergies No known active allergies Medications aspirin [...] cardiomyopathy 09/04/2017 Coronary artery disease invo lving [place] coronary artery of [place] heart without angina pectoris 01/14/2016 SVT (supraventricular tachycardia) 01/14/2016 Mixed hyperlipidemia 01/14/2016 Essential hypertension 01/14/2016 Type 2 diabetes mellitus without complication Family History Medical History Relation Comments [place] Brother [place] Father Relation Status Comments Brother History: [place] age 67 Father (Age 62) Mother (Age 77) bone cancer Social History Tobacco Use Types Packs/Day Years Used Date Smoking Tobacco: Former Cigarettes Q uit: 1974 Smokeless Tobacco: Never Alcohol Use Standard Drinks/Week Comments No 0 (1 standard drink = 0.6 oz pur e alcohol) Sex and Gender Information Value Date Recorded Sex Assigned at Male 08/22/2024 3:31 PM OUTREACH ASSISTANT Legal Sex Male 11:08 PM CDT Gender Identity Not on file Sexual Orientation Not on file Occupation Industry Job Start Date Job End Date 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 Not on file Not on file Last Filed Vital Signs Vital Sign Reading Time Taken Comments Blood Pressure 138/80 09/04/2017 10:59 AM OUTREACH ASSISTANT Pulse 88 09/04/2017 10:59 AM OUTREACH ASSISTANT Temperature - - Respiratory Rate 16 09/04/2017 10:59 AM OUTREACH ASSISTANT Oxygen Saturation - - Inhaled Oxygen Concentration - - Weight 85.3 kg (188 lb) 09/04/2017 10:59 AM OUTREACH ASSISTANT Height 177.8 cm (5' 10) 09/04/2017 10:59 AM OUTREACH ASSISTANT Body Mass Index 26.98 09/04/2017 10:59 AM OUTREACH ASSISTANT Plan of Treatment Health Maintenance Due Date [...] Comments HEMOGLOBIN, GLYCOSYLATED Routine 08/21/2017 10:19 PM OUTREACH ASSISTANT LIPID PANEL Routine 07/23/2015 11:02 AM OUTREACH ASSISTANT from Last 3 Months or Most Recently Relevant to Health Maintenance Results * (ABNORMAL) HEMOGLOBIN, GLYCOSYLATED (08/21/2017 10:19 PM OUTREACH ASSISTANT) HGB A1C 7.4(H) 4.5 - 6.0 % 08/22/2017 12:31 AM OUTREACH ASSISTANT [facility] ESTIMATED AVG GLUCOSE 166 MG/DL 08/22/2017 12:31 AM OUTREACH ASSISTANT [facility] 08/21/2017 10:1 9 PM OUTREACH ASSISTANT 08/21/2017 11:20 PM OUTREACH ASSISTANT Generic Conversion Md [facility] Final R esult [facility] [address] [place] [address], [id number] * (ABNORMAL) LIPID PANEL (07/23/2015 11:02 AM OUTREACH ASSISTANT) CHOLESTEROL 99(L) 120 - 200 mg/dL [facility] TO EPIC CONVERSION TRIGLYCERIDES 142 20 - 200 mg/dL [facility] CONVERSION HDL 23 0 - 55 mg/dL [facility] CONVERSION LDL (CALCULATED) 48 10 - 130 mg/dL [facility] TO [facility] CONVERSION RISK 4 [facility] T O EPIC CONVERSION 07/23/2015 11:0 2 AM OUTREACH ASSISTANT 07/23/2015 11:02 AM OUTREACH ASSISTANT Narrative [facility] TO EPIC CONVERSION - 07/23/2015 12:00 PM OUTREACH ASSISTANT This lab was migrated from [facility] and may be missing annotations or result text, please check the Media tab for the most complete results. Cynthia Casas MD LABORATORY Final Result [facility] TO EPIC CONVERSION from Last 3 Months or Most Recently Relevant to Health Maintenance Insurance [facility] MEDICARE [facility] MEDICARE [facility] Care Teams Cook Apprentice Relationship Specialty Start Date End Date Cynthia Casas MD [address] [place] [address] PCP - General FAMILY PRACTICE 01/09/16 Grecia Bal, ANP- [address] [facility] [address] [place] [address] CARDIOVASCULAR DISEASE 09/04/17
== END 2025-05-27 10:38 | disposition home or self-care (01) ==
PROVIDERS: PCP Family Medicine; Visit Provider Family Medicine
DX: M25.461 Effusion, right knee (principal); S83.241D Other tear of medial meniscus, current injury, right knee, subsequent encounter; X58.XXXD Exposure to other specified factors, subsequent encounter
CPT/HCPCS: 73721